=== PATIENT | male | born 1955 | race Caucasian/White ===

== ENCOUNTER → 2016-12-20 | Outpatient (CLI) | payer BC, OTHER ==
[~2016-12-20] MED LIST: AMR2 PO; ATV1 PO; CARB25TA16 PO; GLC500 PO; HMLI SC; INSDGI SC; LISI-461 PO; NEPRO TOP; RASA1TAB PO; SIMV20TA2 PO; SITA100T3 PO
--- NOTE | 2016-12-20 10:58 | DIAGNOSTIC IMAGING REPORT ---
LUMBAR SPINE 2 OR 3 VIEWS CLINICAL HISTORY: 61 years-old Male presenting with RIGHT LEG NUMBNESS. TECHNIQUE: Frontal and lateral views of the lumbar spine were obtained. COMPARISON: None. FINDINGS: Posterior transpedicular screw and wang fixation of L5-S1 noted with interbody spacer. No gross hardware complication. Vertebral body heights and alignment maintained. Intervertebral disc height also preserved. No radiographic evidence of acute fracture or subluxation. Osseous neural foraminal narrowing at L5-S1 may be present but is not well assessed. Paucity of bowel gas, nonspecific. No calcifications project over the kidneys. IMPRESSION: Posterior fusion of L5-S1. No radiographic evidence of acute fracture or subluxation. Electronically signed by: Gaurav Cruz M.D. 12/20/2016 10:56 AM Dictated Date/Time: 12/20/2016 10:55 AM
== END | disposition home or self-care (01) ==
LOC: C.RDSM 13:35
PROVIDERS: ATTEND Orthopaedic Surgery
DX: M54.5 Low back pain (principal); R20.0 Anesthesia of skin

== ENCOUNTER 2019-04-14 19:33 | Inpatient (IN) ==
[2019-04-14] MEDS ORDERED: SODIUM CHLORIDE 0.9% 1000ML 1,000 ML IV SCH (20:00)
--- NOTE | 2019-04-14 20:20 | XRay Report ---
XR chest 1V portable CLINICAL HISTORY: fall trauma COMPARISON STUDY: 04/13/2019 FINDINGS: The bones soft tissues and hemidiaphragms are normal. The cardiomediastinal silhouette is n ormal. The lungs are clear. The pulmonary vasculature is normal. Chronic and postoperative changes st able IMPRESSION: No acute process. The above report was generated using voice recognition software. It may contain grammatical, syntax or spelling errors. Electronically signed by: Gil Menjivar M.D. 04/14/2019 8:18 PM
[2019-04-14 20:38] LABS: Hematocrit (blood only) 41.6 % (42-52); Mean Corpuscular Hemoglobin 29.7 pg (25-34); Mean Corpuscular Hgb Conc 36.1 g/dL (32-36); Mean Corpuscular Volume 82.4 fL (80-100); RDW Coefficient of Variation 14.8 % (11.5-14.5); RDW Standard Deviation 44.6 fL (36.4-46.3); Red Blood Count 5.05 M/uL (4.7-6.1); White Blood Count 2.67 K/uL (4.8-10.8)
[2019-04-14 20:45] LABS: INR 1.1 (0.9-1.1); Prothrombin Time 10.9 Seconds (9.0-12.0)
--- NOTE | 2019-04-14 20:48 | CT Scan Report ---
CT head/brain wo con CT DOSE: HISTORY: Mental status change fall TECHNIQUE: Multiaxial CT images of the head were performed without the use of intravenous contrast. A dose lowering technique was utilized adhering to the principles of ALARA. Comparison: 04/13/2019 Findings: The paranasal sinuses and mastoid air cells are clear. Unchanged exam. Prior thalamic elect rode placement. This is considered unchanged. Findings of mild age-related atrophy and chronic small vessel change. This is also unaltered. No acut e intracranial hemorrhage. No midline shift. Impression: Chronic and postoperative change. No acute process. The above report was generated using voice recognition software. It may contain grammatical, syntax or spelling errors. Electronically signed by: Gil Menjivar M.D. 04/14/2019 8:47 PM
--- NOTE | 2019-04-14 20:50 | CT Scan Report ---
CT cervical spine wo con CT DOSE: 1148.41 mGy.cm HISTORY: Trauma. Pain. fall TECHNIQUE: Multiaxial CT images of the cervical spine were performed and reformatted in the sagittal and coronal plane without the use of contrast. A dose lowering technique was utilized adhering to th e principles of ALARA. COMPARISON: None. FINDINGS: No fractures. No subluxation. Prevertebral soft tissues and the C1-C2 interval are intact. No pneumothorax. Moderate generalized degenerative change throughout the entire cervical region. No e vidence for a compression deformity. IMPRESSION: Moderate degenerative change. No acute process. The above report was generated using voice recognition software. It may contain grammatical, syntax or spelling errors. Electronically signed by: Gil Menjivar M.D. 04/14/2019 8:49 PM
[2019-04-14 20:51] LABS: Alanine Aminotransferase 39 U/L (12-78); Albumin Level 3.6 gm/dl (3.4-5.0); Aspartate Aminotransferase 45 U/L (15-37); BUN Creatinine Ratio 13.3 (10-20); Blood Urea Nitrogen 13 mg/dl (7-18); Carbon Dioxide 21 mmol/L (21-32); Chloride 97 mmol/L (98-107); Est GFR (African American) 90.7; Est GFR (Non-African American) 78.2; Glucose 192 mg/dl (70-99); Potassium 3.2 mmol/L (3.5-5.1); Sodium 132 mmol/L (136-145)
[2019-04-14 20:55] LABS: Albumin Globulin Ratio 1.1 (0.9-2); Alkaline Phosphatase 81 U/L (45-117); Bilirubin,Total 1.1 mg/dl (0.2-1); Globulin 3.4 gm/dl (2.5-4.0); Troponin I < 0.015 ng/ml (0-0.045)
[2019-04-14 21:06] LABS: Basophils # (auto) 0.05 K/uL (0-0.2); Basophils % (auto) 1.9 %; Lymphocytes # (auto) 0.48 K/uL (1.2-3.4); Mean Platelet Volume 10.4 fL (7.4-10.4); Monocytes # (auto) 0.34 K/uL (0.11-0.59); Monocytes % (auto) 12.7 %; Neutrophils % (auto) 67.4 %; Platelet Count 68 K/uL (130-400); Platelet Estimate Decreased (Normal)
--- NOTE | 2019-04-14 22:01 | History & Physical Report ---
Date of Service April 14, 2019 Assessment & Plan (1) Recurrent falls: Butch Pina is a 63-year-old male with a past medical history of type 2 diabetes mellitus and Parkinson's disease who presents with ambulatory dysfunction, fall, and fever. Ambulatory dysfunction/weakness with fever and leukopenia suspicious for anaplasmosis Gradually worsening ambulatory dysfunction over several months, but acutely worsened in the last week Patient's family had pulled several engorged deer ticks off of him in the last 2 weeks Neutropenic to 2.67, elevated AST to 45, febrile to 37.7 on admit. Anaplasmosis smear and PCR ordered Empiric anaplasmosis treatment doxycycline 100 mg IV twice daily x10-day course Suspect he has a substantial amount of deconditioning independent of acute illness, will likely need NISHANT. PT/OT ordered CBC, CMP daily Type 2 diabetes mellitus, poorly controlled Per patient's family he rarely takes his medications due to his confusion in the last week, and overall difficulty managing medications Hold EVENTS ASSISTANT oral anti-glycemic's Continue insulin glargine 54 units subcu twice daily Continue insulin aspart SSI Given patient's unknown insulin requirements, and unclear protocol adherence will place pharmacy consult for close monitoring of short acting insulin and titration Hemoglobin A1c ordered Parkinson's Patient has a deep brain stimulator which is effective in helping control his tremors Continue EVENTS ASSISTANT Sinemet 2 tabs p.o. 4 times daily Continue EVENTS ASSISTANT Azilect 1 mg p.o. every morning Back pain/spasm status post spinal fusion Continue meloxicam 15 mg p.o. daily Continue oxycodone 5 mg p.o. every 4 hours as needed Hypertension Continue loratadine 10 mg p.o. nightly Continue irbesartan 300 mg p.o. nightly Continue aspirin 81 mg nightly Dysphagia, concern for aspiration risk Patient has had repeated liquid aspiration events per family with difficulty swallowing medications N.p.o. with sips and meds pending PROP CUTTER eval Hypokalemia K riders x4 IV FM as below Magnesium normal at last check DVT prophylaxis: SCDs. Pharmacologic prophylaxis held in the setting of thrombocytopenia FEN/GI N.p.o. as above NSS +20 M EQ KCl at 80 cc/h maintenance CODE STATUS: Full code, discussed with patient (2) Leukopenia: (3) Thrombocytopenia: (4) Weakness: (5) Parkinson's disease: (6) Acute viral syndrome: (7) Dehydration: (8) Hyperglycemia: (9) Parkinson disease: (10) DM type 2 (diabetes mellitus, type 2): History of Present Illness Chief Complaint: Fall, Fever Primary Care Provider: Cedrick Marquez MD Butch is a 63-year-old male with a past medical history of Parkinson's and type 2 diabetes mellitus who presents with chronic ambulatory dysfunction over several months, with a sudden acute worsening in the last week. Butch reports that for the last week he is felt globally weak. He has had some intermittent numbness and tingling in his left arm. He denies chest pain, chest pressure, shortness of breath, difficulty breathing, new cough, lightheadedness, or dizziness, but endorses that he just feels globally weak. His family who is present at bedside report that they feel like he is a little cognitively slowed and more confused than normal. He has also had urinary incontinence last 3 to 4 days which is unusual for him. He has not noticed an increase in his parki nsonian tremor. Denies fever at home, but has felt warm. Denies chills, night sweats. Denies rash, joint swelling, arthralgia. His reports that he danielle deer heads and she recently pulled multiple embedded deer ticks off of him. He had Lyme testing at a ED visit yesterday for a fall, IgM/IgG were negative. His reports that he is only been about 30% compliant with his medications overall due to weakness and difficulty swallowing medications. He has chronic back pain controlled and had spinal fusion in October, reports that he is felt weak and has had difficulty ambulating since then. Has not been to rehab. He fell this afternoon, and was reportedly down for about 2 hours before his found him. A chair fell on top of him and hit his head. He did not lose consciousness. Endorses allergies. Denies cold-like symptoms. Endorses chronic leg cough, unchanged from baseline. Denies sputum production. Denies sore throat. Denies sinus congestion. Denies shortness of breath, difficulty breathing, pain on inspiration. Denies chest pain, chest pressure, palpitations. Endorses a fall, but denies loss of consciousness. Denies flank pain. Denies nausea, vomiting, diarrhea, constipation, abdominal pain. Endorses midline umbilical hernia without tenderness. Denies numbness in distal extremities. Endorses intermittent left arm tingling and paresthesia in the last week. Denies focal neurologic deficit. Endorses parkinsonian tremor. His neurologist is Dr. Knox and Prudence PCP is Dr. Scott Gaitan Allergies Allergy/AdvReac Type Severity Reaction Status Date / Time lisinopril Allergy Mild Cough Verified 04/14/19 21:16 Njcrsfu-Vam-Gmy Reductase Allergy Mild MUSCLE Verified 04/14/19 21:16 Inhibitor CRAMPS Home Medications Home Medications Medication Instructions Recorded Confirmed Type carbidopa-levodopa 2 tab PO QID 04/13/19 04/14/19 History dapagliflozin [Farxiga] 10 mg PO QAM 04/13/19 04/14/19 History evolocumab [Repatha SureClick] 140 mg SUBCUT Q14D 04/13/19 04/14/19 History finasteride 5 mg PO HS 04/13/19 04/14/19 History insulin glargine [Lantus Solostar 54 unit SUBCUT BID 04/13/19 04/14/19 History U-100 Insulin] loratadine 10 mg PO HS 04/13/19 04/14/19 History metformin 1,000 mg PO DIRECTED 04/13/19 04/14/19 History aspirin 81 mg PO HS 04/14/19 04/14/19 History cholecalciferol (vitamin D3) 400 unit PO QAM 04/14/19 04/14/19 History [Vitamin D3] cyanocobalamin (vitamin B-12) 100 mcg PO QAM 04/14/19 04/14/19 History [Vitamin B-12] fluticasone propionate [Flonase 2 spray INTRANASAL DAILY PRN 04/14/19 04/14/19 History Allergy Relief] insulin aspart U-100 [Novolog See Rx Instructions .ROUTE .COMPLEX 04/14/19 04/14/19 History Flexpen U-100 Insulin] irbesartan 300 mg PO HS 04/14/19 04/14/19 History lutein 10 mg PO HS 04/14/19 04/14/19 History meloxicam 15 mg PO DAILY PRN 04/14/19 04/14/19 History oxycodone 5 mg PO Q4H PRN 04/14/19 04/14/19 History rasagiline [Azilect] 1 mg PO QAM 04/14/19 04/14/19 History Past Med/Surg History Surgical History No pertinent past surgical history Social History Preferred Language: Pashto Communication Ability: Effective Inspector Aide Required: No Beliefs That Will Affect Care: None Current Living Situation: Spouse Feels Safe at Home: Yes Smoking Status: Never smoker Hx Alcohol Use: No Hx Substance Use: No Review of Systems Review of Systems: All systems reviewed & are unremarkable except as noted in HPI & below Physical Exam Physical Exam: General: Oriented to name, year, and place. No acute distress. Cooperative. Speech slow, fluent. Skin: No rash, no erythema migrans appreciated. No petechiae/hematomas appreciated. HEENT: Atraumatic, normocephalic. No facial asymmetry. No nasolabial fold flattening or hypertonicity. Pupils equal and reactive to light and accommodation. No nystagmus. Facial sensation intact, facial strength intact without deficit. External ear anatomy normal. External nasal anatomy normal. Mucous membranes tacky, posterior pharynx without erythema/exudate. Uvula midline. Pulm: CTAB A&P. -wheezes, -rales, -rhonchi. Symmetrical chest rise. No increase work of breathing. No respiratory distress. Cardiac: RRR, -mrg. Intermittent PVC every 10-20 beats. Radial pulses intact and symmetrical. PT pulse intact and symmetrical. Abdominal: Nontender, nondistended, soft. Reducible umbilical hernia present. BS present. Extremities: Cogwheeling tremor appreciated in arms bilaterally, more exaggerated on the left compared to right. Finger flexion/extension, airborne missions systems strength, elbow flexion/extension, hip flexion, knee flexion/extension, ankle plantarflexion/dorsiflexion with 4+/5 strength. Results & Data Vital Signs (Past 12 Hours) Vital Signs Temp Pulse Pulse Resp BP BP Pulse Ox 04/14/19 21:30 95 H 20 04/14/19 21:15 94 H 14 04/14/19 21:00 90 27 H 04/14/19 20:52 95 H 22 04/14/19 20:30 90 22 140/72 04/14/19 20:01 37.7 C H 102 H 14 145/84 H 93 04/14/19 19:58 102 H 93 11/20/19 19:39 37.6 C H 113 H 18 147/81 H 94 Supervising Physician Co-Signing Physician Notes Patient seen and examined, chart reviewed, case discussed with Dr. Phelps and I agree with his assessment and plan as documented above. Briefly, patient is a 63-year-old male with history of diabetes, Parkinson's disease. Family reports a progressive decline and deconditioning since October however over the last week patient has had rapid decline, diffuse weakness, poor balance with multiple falls. Patient with recent tick exposure. No rash reported On physical exam he is afebrile, hemodynamically stable, no acute distress Elderly appearing gentleman resting comfortably in bed Skin is warm dry and intact Head is normocephalic atraumatic, pupils equal round reactive to light, extraocular muscles intact, neck supple, moist mucous membranes + S1/S2, regular with occasional ectopy, no murmurs rubs or gallops Lungs CTA no rales rhonchi or wheezes Abdomen bowel sounds present, soft, nontender, nondistended Extremitieswarm, well-perfused Neurologicalpatient with cogwheel rigidity and resting tremor, diffuse weakness 4-5 Labs and images reviewed. She is leukopenic and thrombocytopenic. Hyponatremic with sodium = 132, potassium = 3.2, chloride = 97, high urine specific gravity with 4+ ketones Assessment/plan 63-year-old male with history of diabetes, hypertension, Parkinson's disease presenting with 1 week of increasing weakness and imbalance with multiple falls. -Concern for tickborne illness given recent exposure and laboratory abnormalities of leukopenia/thrombocytopenia. Lyme was sent at other facility, will sign anaplasmosis/babesiosis/Ehrlichia tests. Initiate empiric doxycycline 100 mg twice daily -Repeat chemistry in a.m. If patient with persistent anion gap would consider sending ABG and lactate to further assess acid-base status. Patient had a markedly elevated blood sugar at 443 yesterday, also 3+ glucose in urine and ketones. -Remainder of plan as above Resident Activity Tracking Resident Involvement: Resident Care Provided Care Provided: Adult Hospital Medicine (1) Leukopenia Leukopenia type: other Qualified Code(s): D72.818 - Other decreased white blood cell count
[2019-04-14 22:56] LABS: Appearance Urine Clear (Clear); Bacteria Urine Automated Negative (Negative); Bilirubin Urine Negative (Negative); Blood Urine Trace (Negative); Cast Urine Automated 0 /lpf (0-5); Color Urine Yellow; Glucose Urine UA 3+ (Negative); Leukocyte Esterase Urine Negative (Negative); Nitrite Urine Negative (Negative); Protein Urine Trace (Negative); RBC Urine Automated 0-4 /hpf (0-4); Urobilinogen Urine Negative (Negative)
[2019-04-14 23:02] LABS: Ketones Urine 4+ (Negative)
[2019-04-14] MEDS ORDERED: SODIUM CHLORIDE 0.9% 1000ML 1,000 ML IV ONE (23:13)
[2019-04-14] MEDS ORDERED: CARBOHYDRATES FOR HYPOGLYCEMIA PO PRN (23:31)
[2019-04-14] MEDS ORDERED: DEXTROSE 50% 50 ML SYRINGE IV PRN (23:31)
[2019-04-14] MEDS ORDERED: ACETAMINOPHEN 325 MG TAB PO PRN (23:31)
[2019-04-14] MEDS ORDERED: GLUCOSE 40% GEL 15 GM TUBE PO PRN (23:31)
[2019-04-14] MEDS ORDERED: MELOXICAM 7.5 MG TAB PO PRN (23:31)
[2019-04-14] MEDS ORDERED: GLUCOSE 10 TABS/TUBE PO PRN (23:31)
[2019-04-14] MEDS ORDERED: GLUCAGON FOR INJ 1 MG VIAL SQ PRN (23:31)
--- NOTE | 2019-04-14 23:44 | Emergency Department Note ---
Entered by Gabrielle Chauhan acting as a scribe for Tomas Vicente DO History of Present Illness General Chief complaint: Fall Stated complaint: FELL, CHAIR HIT HEAD, ARMS SCRAPPED Source: patient and family () History of Present Illness Onset (ago): hour(s) 5 Location: head Maximum Pain Intensity: 6 Current Pain Intensity: 6 Relieved By: + none Exacerbated By: + none Associated symptoms: + confusion and + headaches Treatments prior to arrival: none The patient is a 63 year old male who presents to the Emergency Room with complaints of fall that occurred about 5 hours ago. The patient was in the hospital yesterday for DKA. He reports that he fell around 14:00 today. He notes that he fell backwards and hit his head on a chair. He remembers the whole event, and did not lose consciousness. He complains of head pain and elbow pain. He does not take any blood thinners. His reports that he has Parkinsons, diabetes, and that he falls often. She notes that his falls have worsened over the past week, with about 5 incidents. She notes that he had back surgery in October, which he recovered from. His states that he has not been doing well at home over the past week. Home Medications Home Medications Medication Instructions Recorded Confirmed Type carbidopa-levodopa 2 tab PO QID 04/13/19 04/14/19 History dapagliflozin [Farxiga] 10 mg PO QAM 04/13/19 04/14/19 History evolocumab [Repatha SureClick] 140 mg SUBCUT Q14D 04/13/19 04/14/19 History finasteride 5 mg PO HS 04/13/19 04/14/19 History insulin glargine [Lantus Solostar 54 unit SUBCUT BID 04/13/19 04/14/19 History U-100 Insulin] loratadine 10 mg PO HS 04/13/19 04/14/19 History metformin 1,000 mg PO DIRECTED 04/13/19 04/14/19 History aspirin 81 mg PO HS 04/14/19 04/14/19 History cholecalciferol (vitamin D3) 400 unit PO QAM 04/14/19 04/14/19 History [Vitamin D3] cyanocobalamin (vitamin B-12) 100 mcg PO QAM 04/14/19 04/14/19 History [Vitamin B-12] fluticasone propionate [Flonase 2 spray INTRANASAL DAILY PRN 04/14/19 04/14/19 History Allergy Relief] insulin aspart U-100 [Novolog See Rx Instructions .ROUTE .COMPLEX 04/14/19 04/14/19 History Flexpen U-100 Insulin] irbesartan 300 mg PO HS 04/14/19 04/14/19 History lutein 10 mg PO HS 04/14/19 04/14/19 History meloxicam 15 mg PO DAILY PRN 04/14/19 04/14/19 History oxycodone 5 mg PO Q4H PRN 04/14/19 04/14/19 History rasagiline [Azilect] 1 mg PO QAM 04/14/19 04/14/19 History Allergies Allergy/AdvReac Type Severity Reaction Status Date / Time lisinopril Allergy Mild Cough Verified 04/14/19 21:16 [id number]-[id number]-[id number] Reductase Allergy Mild MUSCLE Verified 04/14/19 21:16 Inhibitor CRAMPS Past Med/Surg History Surgical History No pertinent past surgical history Social History Preferred Language: Kuwaiti Communication Ability: Effective Leasing Manager Required: No Beliefs That Will Affect Care: None Current Living Situation: Spouse Feels Safe at Home: Yes Smoking Status: Never smoker Hx Alcohol Use: No Hx Substance Use: No Review of Systems See HPI for pertinent positives & negatives. and A total of 10 systems reviewed and were otherwise negative Physical Exam Vital Signs Vital Signs - 24 hr 04/14/19 19:39 04/14/19 19:58 04/14/19 20:01 Temperature 37.6 C H 37.7 C H Temperature Source Oral Oral Pulse Rate 113 H 102 H Pulse Rate [Left Apical] 102 H Pulse Rate from SpO2 Sensor Pulse Rhythm Regular Pulse Rhythm [Left Apical] Regular Pulse Strength [Left Apical] Normal Respiratory Rate 18 14 Respiratory Effort / Characteristics Non-Labored Spontaneous Respiratory Depth Normal Respiratory Pattern Regular Blood Pressure 147/81 H Blood Pressure [Right Arm] 145/84 H Blood Pressure Mean 103 Blood Pressure Mean [Right Arm] 104 Blood Pressure Position [Right Arm] Lying Pulse Oximetry 94 93 93 Oxygen Delivery Method Room Air Room Air Room Air Sepsis Recent Fever Within 48 Hours No Sepsis New/Unexplained Change in Mental Status No Sepsis Action Taken by Nursing No Action Required 04/14/19 20:30 04/14/19 20:52 04/14/19 21:00 Temperature Temperature Source Pulse Rate 90 95 H 90 Pulse Rate [Left Apical] Pulse Rate from SpO2 Sensor Pulse Rhythm Pulse Rhythm [Left Apical] Pulse Strength [Left Apical] Respiratory Rate 22 22 27 H Respiratory Effort / Characteristics Respiratory Depth Respiratory Pattern Blood Pressure 140/72 Blood Pressure [Right Arm] Blood Pressure Mean 98 Blood Pressure Mean [Right Arm] Blood Pressure Position [Right Arm] Pulse Oximetry Oxygen Delivery Method Sepsis Recent Fever Within 48 Hours Sepsis New/Unexplained Change in Mental Status Sepsis Action Taken by Nursing 04/14/19 21:15 04/14/19 21:30 04/14/19 21:45 Temperature Temperature Source Pulse Rate 94 H 95 H 96 H Pulse Rate [Left Apical] Pulse Rate from SpO2 Sensor Pulse Rhythm Pulse Rhythm [Left Apical] Pulse Strength [Left Apical] Respiratory Rate 14 20 28 H Respiratory Effort / Characteristics Respiratory Depth Respiratory Pattern Blood Pressure Blood Pressure [Right Arm] Blood Pressure Mean Blood Pressure Mean [Right Arm] Blood Pressure Position [Right Arm] Pulse Oximetry Oxygen Delivery Method Sepsis Recent Fever Within 48 Hours Sepsis New/Unexplained Change in Mental Status Sepsis Action Taken by Nursing 04/14/19 22:00 04/14/19 22:15 04/14/19 22:21 Temperature Temperature Source Pulse Rate 96 H 100 H 97 H Pulse Rate [Left Apical] Pulse Rate from SpO2 Sensor 97 H Pulse Rhythm Pulse Rhythm [Left Apical] Pulse Strength [Left Apical] Respiratory Rate 30 H 31 H 30 H Respiratory Effort / Characteristics Respiratory Depth Respiratory Pattern Blood Pressure 139/69 Blood Pressure [Right Arm] Blood Pressure Mean 88 Blood Pressure Mean [Right Arm] Blood Pressure Position [Right Arm] Pulse Oximetry 96 Oxygen Delivery Method Sepsis Recent Fever Within 48 Hours Sepsis New/Unexplained Change in Mental Status Sepsis Action Taken by Nursing 04/14/19 22:30 04/14/19 22:31 04/14/19 22:45 Temperature Temperature Source Pulse Rate 93 H 96 H 92 H Pulse Rate [Left Apical] Pulse Rate from SpO2 Sensor 89 94 H 93 H Pulse Rhythm Pulse Rhythm [Left Apical] Pulse Strength [Left Apical] Respiratory Rate 23 16 23 Respiratory Effort / Characteristics Respiratory Depth Respiratory Pattern Blood Pressure 135/69 183/86 H Blood Pressure [Right Arm] Blood Pressure Mean 89 118 Blood Pressure Mean [Right Arm] Blood Pressure Position [Right Arm] Pulse Oximetry 95 96 92 Oxygen Delivery Method Sepsis Recent Fever Within 48 Hours Sepsis New/Unexplained Change in Mental Status Sepsis Action Taken by Nursing GENERAL: alert, well appearing, well nourished, no distress, non-toxic HEAD: mild tenderness in posterior occiput. normal cephalic EYE EXAM: normal conjunctiva, PERRL and EOM's grossly intact OROPHARYNX: no exudate, no erythema, lips, buccal mucosa, and tongue normal and mucous membranes are moist EARS: TMs clear b/l NECK: supple, no nuchal rigidity, no adenopathy, non-tender CHEST: stable to compression anteriorly and posteriorly LUNGS: clear to auscultation. Normal chest wall mechanics HEART: no murmurs, S1 normal and S2 normal ABDOMEN: abdomen soft, non-tender, normo-active bowel sounds, no masses, no rebound or guarding. PELVIS: stable to compression anteriorly and posteriorly BACK: Bruise over right scapula. Back is symmetrical on inspection and there is no deformity, no midline tenderness, no CVA tenderness. UPPER EXTREMITIES: full active and passive range of motion of all joints without tenderness to palpation LOWER EXTREMITIES: Rigidity in left lower extremity. Tenderness to palpation. NEURO EXAM: Normal sensorium, cranial nerves II-XII intact, normal speech, no weakness of arms, no weakness of legs. No drift. Finger to nose intact. Gross sensation intact. GCS: 15. Course Course 1951: Past medical records reviewed. The patient was evaluated in room B12B. A complete history and physical exam was performed. 2126: I spoke to Nathalia Brooks, [facility] Hospitalist, regarding the patient. She agreed to take over care and further evaluate the patient. The patient verbally expressed understanding and agreement of the treatment plan. The patient will be evaluated for further treatment. Administered Medications Discontinued Medications Sodium Chloride (Nss 1000ml) 1,000 mls @ 999 mls/hr IV .Q1H1M ZOHRA Stop: 04/14/19 21:00 Last Infusion: 04/14/19 21:33 Dose: 0 mls/hr Documented by: [id number] Admin: 04/14/19 20:32 Dose: 999 mls/hr Documented by: [id number] Medical Decision Making Differential Diagnosis Differential diagnosis includes: fracture, dislocation, intra-abdominal, pneumothorax, intrathoracic , intracranial, neurologic, as well as other traumatic pathologies were entertained. Medical Records Attestation: I reviewed the patient's medical records. Home Medications Current Medication List: was personally reviewed by me Laboratory Data Attestation: I reviewed the patient's lab results. Result diagrams: 04/14/19 20:24 04/14/19 20:24 Lab Results 04/14/19 04/14/19 04/14/19 Range/Units 19:48 20:24 20:24 WBC 2.67 L (4.8-10.8) K/uL RBC 5.05 (4.7-6.1) M/uL Hgb 15.0 (14.0-18.0) g/dL Hct 41.6 L (42-52) % MCV 82.4 (80-100) fL MCH 29.7 (25-34) pg MCHC 36.1 H (32-36) g/dL RDW Std Deviation 44.6 (36.4-46.3) fL RDW Coeff of Genevieve 14.8 H (11.5-14.5) % Plt Count 68 L (130-400) K/uL MPV 10.4 (7.4-10.4) fL Immature Gran % (Auto) 0.0 % Neut % (Auto) 67.4 % Lymph % (Auto) 18.0 % Kinney % (Auto) 12.7 % Eos % (Auto) 0.0 % Baso % (Auto) 1.9 % Immature Gran # (Auto) 0.00 (0.00-0.02) K/uL Neut # (Auto) 1.80 (1.4-6.5) K/uL Lymph # (Auto) 0.48 L (1.2-3.4) K/uL Kinney # (Auto) 0.34 (0.11-0.59) K/uL Eos # (Auto) 0.00 (0-0.5) K/uL Baso # (Auto) 0.05 (0-0.2) K/uL Platelet Estimate Decreased L (Normal) PT (9.0-12.0) Seconds INR (0.9-1.1) Sodium 132 L (136-145) mmol/L Potassium 3.2 L (3.5-5.1) mmol/L Chloride 97 L (98-107) mmol/L Carbon Dioxide 21 (21-32) mmol/L Anion Gap 14.0 H (3-11) BUN 13 (7-18) mg/dl Creatinine 1.01 (0.6-1.4) mg/dl Est Cr Clr Drug Dosing Not Reportable Est GFR ( Amer) 90.7 Est GFR (Non-Af Amer) 78.2 BUN/Creatinine Ratio 13.3 (10-20) Glucose 192 H (70-99) mg/dl POC Glucose 185 H (70-99) Calcium 9.0 (8.5-10.1) mg/dl Total Bilirubin 1.1 H (0.2-1) mg/dl AST 45 H (15-37) U/L ALT 39 (12-78) U/L Alkaline Phosphatase 81 (45-117) U/L Troponin I < 0.015 (0-0.045) ng/ml Total Protein 7.0 (6.4-8.2) gm/dl Albumin 3.6 (3.4-5.0) gm/dl Globulin 3.4 (2.5-4.0) gm/dl Albumin/Globulin Ratio 1.1 (0.9-2) Urine Color Urine Appearance (Clear) Urine pH (4.5-7.5) Ur Specific Ellsworth (1.000-1.030) Urine Protein (Negative) Urine Glucose (UA) (Negative) Urine Ketones (Negative) Urine Blood (Negative) Urine Nitrite (Negative) Urine Bilirubin (Negative) Urine Urobilinogen (Negative) Ur Leukocyte Esterase (Negative) Urine WBC (Auto) (0-5) /hpf Urine RBC (Auto) (0-4) /hpf U Hyaline Cast (Auto) (0-5) /lpf U Epithel Cells (Auto) (0-5) /lpf Urine Bacteria (Auto) (Negative) 04/14/19 04/14/19 Range/Units 20:24 22:15 WBC (4.8-10.8) K/uL RBC (4.7-6.1) M/uL Hgb (14.0-18.0) g/dL Hct (42-52) % MCV (80-100) fL MCH (25-34) pg MCHC (32-36) g/dL RDW Std Deviation (36.4-46.3) fL RDW Coeff of Genevieve (11.5-14.5) % Plt Count (130-400) K/uL MPV (7.4-10.4) fL Immature Gran % (Auto) % Neut % (Auto) % Lymph % (Auto) % Kinney % (Auto) % Eos % (Auto) % Baso % (Auto) % Immature Gran # (Auto) (0.00-0.02) K/uL Neut # (Auto) (1.4-6.5) K/uL Lymph # (Auto) (1.2-3.4) K/uL Kinney # (Auto) (0.11-0.59) K/uL Eos # (Auto) (0-0.5) K/uL Baso # (Auto) (0-0.2) K/uL Platelet Estimate (Normal) PT 10.9 (9.0-12.0) Seconds INR 1.1 (0.9-1.1) Sodium (136-145) mmol/L Potassium (3.5-5.1) mmol/L Chloride (98-107) mmol/L Carbon Dioxide (21-32) mmol/L Anion Gap (3-11) BUN (7-18) mg/dl Creatinine (0.6-1.4) mg/dl Est Cr Clr Drug Dosing Est GFR ( Amer) Est GFR (Non-Af Amer) BUN/Creatinine Ratio (10-20) Glucose (70-99) mg/dl POC Glucose (70-99) Calcium (8.5-10.1) mg/dl Total Bilirubin (0.2-1) mg/dl AST (15-37) U/L ALT (12-78) U/L Alkaline Phosphatase (45-117) U/L Troponin I (0-0.045) ng/ml Total Protein (6.4-8.2) gm/dl Albumin (3.4-5.0) gm/dl Globulin (2.5-4.0) gm/dl Albumin/Globulin Ratio (0.9-2) Urine Color Yellow Urine Appearance Clear (Clear) Urine pH 5.0 (4.5-7.5) Ur Specific Ellsworth 1.040 H (1.000-1.030) Urine Protein Trace H (Negative) Urine Glucose (UA) 3+ H (Negative) Urine Ketones 4+ H (Negative) Urine Blood Trace H (Negative) Urine Nitrite Negative (Negative) Urine Bilirubin Negative (Negative) Urine Urobilinogen Negative (Negative) Ur Leukocyte Esterase Negative (Negative) Urine WBC (Auto) 1-5 (0-5) /hpf Urine RBC (Auto) 0-4 (0-4) /hpf U Hyaline Cast (Auto) 0 (0-5) /lpf U Epithel Cells (Auto) 5-10 H (0-5) /lpf Urine Bacteria (Auto) Negative (Negative) Imaging Data Radiologist's Impression: Radiology results as stated below per my review and th e radiologist's interpretation: CT cervical spine wo con CT DOSE: 1148.41 mGy.cm HISTORY: Trauma. Pain. fall TECHNIQUE: Multiaxial CT images of the cervical spine were performed and reformatted in the sagittal and coronal plane without the use of contrast. A dose lowering technique was utilized adhering to the principles of ALARA. COMPARISON: None. FINDINGS: No fractures. No subluxation. Prevertebral soft tissues and the C1-C2 interval are intact. No pneumothorax. Moderate generalized degenerative change throughout the entire cervical region. No evidence for a compression deformity. IMPRESSION: Moderate degenerative change. No acute process. The above report was generated using voice recognition software. It may contain grammatical, syntax or spelling errors. Electronically signed by: Gil Menjivar M.D. 04/14/2019 8:49 PM XR chest 1V portable CLINICAL HISTORY: fall trauma COMPARISON STUDY: 04/13/2019 FINDINGS: The bones soft tissues and hemidiaphragms are normal. The cardiomediastinal silhouette is normal. The lungs are clear. The pulmonary vasculature is normal. Chronic and postoperative changes stable IMPRESSION: No acute process. The above report was generated using voice recognition software. It may contain grammatical, syntax or spelling errors. Electronically signed by: Gil Menjivar M.D. 04/14/2019 8:[address] head/brain wo con CT DOSE: HISTORY: Mental status change fall TECHNIQUE: Multiaxial CT images of the head were performed without the use of intravenous contrast. A dose lowering technique was utilized adhering to the principles of ALARA. Comparison: 04/13/2019 Findings: The paranasal sinuses and mastoid air cells are clear. Unchanged exam. Prior thalamic electrode placement. This is considered unchanged. Findings of mild age-related atrophy and chronic small vessel change. This is also unaltered. No acute intracranial hemorrhage. No midline shift. Impression: Chronic and postoperative change. No acute process. The above report was generated using voice recognition software. It may contain grammatical, syntax or spelling errors. Electronically signed by: Gil Menjivar M.D. 04/14/2019 8:47 PM ECG Data Attestation: I personally reviewed and interpreted this ECG as follows: Indication: + other (fall) Rate (beats per minute): 103 Rhythm: + sinus tachycardia ECG Intervals/blocks: + Normal QT ECG Fulda: + Left axis deviation ECG Findings: + Q waves (Septal); no PVCs Blood Pressure Blood Pressure Findings: Elevated blood pressure Blood Pressure Disposition: further management by hospitalist SARY Narrative Patient is a 63-year-old male who presents the ER for a fall which happened earlier today. He was unable to get off the floor. He has fallen 5 times in the past week. Twice in the past 24 hours. He is been unable to get himself up the past 3 falls. He notes he is feeling weaker. IV was established and shows a mild leukopenia 2.6 thousand. No significant anemia. INR unremarkable. BMP shows a mild hyponatremia and hypokalemia. LFTs bilirubin and troponin was negative. UA was unremarkable. CT head and cervical spine was unremarkable. Chest x-ray unremarkable. With the recurrent falls and family unable to take care of him at home patient was brought in for observation. Discussed with the hospitalist. Do favor that this is secondary to his Parkinson's. Impression & Plan Recurrent falls, Leukopenia, Thrombocytopenia, Weakness Discharge Plan Visit Data *Final* Discharge Date/Time: 04/14/19 22:55 Chief Complaint: Fall Stated Complaint: FELL, CHAIR HIT HEAD, ARMS SCRAPPED ED Provider: Tomas Vicente Discharge Problem: Recurrent falls, Leukopenia, Thrombocytopenia, Weakness Patient Disposition: Admitted As Inpatient Discharge Instructions Interventions: ED Discharge Assessment Last Done: 04/14/19 22:55 Discharge Problem: Leukopenia Qualifiers: Leukopenia type: other Qualified Code(s): D72.818 - Other decreased white blood cell count The scribe's documentation has been prepared under my direction and personally reviewed by me in its entirety. I confirm that the note above accurately reflects all work, treatment, procedures, and medical decision making performed by me.
[2019-04-14] MEDS ORDERED: OXYCODONE HCL IR 5 MG TAB (IMMEDIATE RELEASE) PO PRN (23:46)
[2019-04-14] MEDS ORDERED: PHARMACY GLYCEMIC MGMT CONSULT PRN (23:50)
[2019-04-15] MEDS ORDERED: INSULIN GLARGINE SOLOSTAR 100 UNITS/ML 3 ML PEN SQ ONE
--- NOTE | 2019-04-15 00:31 | Billing Data ---
Coding Level of Care Code 59890 Initial Inpt Care Lvl 3
[2019-04-15] MEDS: DOXYCYCLINE HYCLATE 100 MG in DEXTROSE 5% 100 ML IV SCH ×2 (00:42→12:54)
[2019-04-15] MEDS: INSULIN ASPART 100 UNITS/ML 3 ML PEN SC SCH ×6 (00:48→21:44)
[2019-04-15] MEDS: NSS + 20MEQ KCL 20 MEQ/1,000 ML BAG IV SCH ×2 (00:51→12:54)
[2019-04-15] MEDS: AZILECT~ORDER AWAITING ACTION SCH ×3 (02:11→13:07)
[2019-04-15] MEDS: POTASSIUM CHLORIDE / WTR 10 MEQ/100 ML PLCT IV SCH ×4 (02:11→05:49)
[2019-04-15 06:57] LABS: Hemoglobin 13.2 g/dL (14.0-18.0); Mean Corpuscular Hemoglobin 29.8 pg (25-34); Mean Corpuscular Hgb Conc 35.7 g/dL (32-36); Mean Corpuscular Volume 83.5 fL (80-100); RDW Standard Deviation 46.1 fL (36.4-46.3); Red Blood Count 4.43 M/uL (4.7-6.1)
[2019-04-15 07:15] LABS: Mean Platelet Volume 10.3 fL (7.4-10.4); Platelet Count 57 K/uL (130-400)
[2019-04-15 07:28] LABS: BUN Creatinine Ratio 17.3 (10-20); Calcium 8.2 mg/dl (8.5-10.1); Creatinine Clr Calc Pharmacy 115.4 ml/min; Est GFR (African American) 113.6; Potassium 3.4 mmol/L (3.5-5.1)
[2019-04-15 07:38] LABS: ALC (manual) 1.02 K/uL (1.2-3.4); ANC (manual) 1.33 K/uL (1.4-6.5); Basophils # (manual) 0.02 K/uL (0-0.2); Basophils % (manual) 0.9 %; Lymphocytes # (manual) 1.02 K/uL (1.2-3.4); Lymphocytes % (manual) 40.9 %; Monocytes # (manual) 0.13 K/uL (0.11-0.59); Monocytes % (manual) 5.2 %; Neutrophils # (manual) 1.33 K/uL (1.4-6.5); RBC Morphology Unremarkable
[2019-04-15] MEDS: CARBIDOPA/LEVODOPA 25/100MG TAB PO SCH ×4 (08:16→22:07)
[2019-04-15] MEDS: CHOLECALCIFEROL (VITAMIN D) 400 UNITS TABLET PO SCH (08:17)
[2019-04-15] MEDS: CYANOCOBALAMIN (VITAMIN B-12) 100 MCG TABLET PO SCH (08:17)
[2019-04-15 08:20] LABS: Estimated Average Glucose 335 mg/dl; Hemoglobin A1C 13.3 % (4.5-5.6)
[2019-04-15] MEDS ORDERED: INSULIN GLARGINE SOLOSTAR 100 UNITS/ML 3 ML PEN SQ SCH ×2 (09:00→10:00)
--- NOTE | 2019-04-15 09:06 | Pharmacy Report ---
Pharmacy Glycemic Short Note 2 - Date of Service April 15, 2019 - Glycemic Short BSG Results (Last 24 hours): 04/14/19 04/14/19 04/15/19 19:48 20:24 00:47 Glucose 192 H POC Glucose 185 H 125 H 04/15/19 04/15/19 05:52 06:44 Glucose 89 POC Glucose 125 H OUTPATIENT ANTIDIABETIC REGIMEN: * Lantus 54 units SQ BID + Novolog TID with meals (22 units/12 units/26 units) * Farxiga 10 mg qAM + metformin (currently being held) * non-compliant with outpatient regimen * A1c = 13.3% (04/15/19) ASSESSMENT: * Mr. Pina is a 63 yr old male with h/o Parkinsons disease admitted for recurrent falls, fever, and suspicion for anaplasmosis infection. * Poorly controlled T2DM. Patient's family reports non-compliance with anti- diabetic regimen due to confusion and difficulty managing medications. * Fasting BSG of 125 mg/dL is at goal. Butch received a reduced dose of basal insulin yesterday; total of 84 units of Lantus (of note PM dose given late, ~0100). I further reduced this dose by ~25% for NPO status this morning. Patient was ordered a diet with lunch, therefore PM dose will be titrated upward. * Will utilize weight based Novolog CF/CR (stress of 2-3) rather than home doses due to non compliance. PLAN FOR INPATIENT GLYCEMIC CONTROL: * Hold outpatient oral diabetes medications * Basal insulin * Lantus 30 units SQ this morning, then per scale BID: * 20 units for BSG < 120 * 30 units for BSG 120-180 * 40 units for BSG > 180 * Bolus insulin * NovoLog per scale ACHS or Q6hrs while NPO * Goal Range: Low 120 mg/dL - High 150 mg/dL * Correction Factor: 15 mg/dL/unit * Nutritional / Prandial insulin per carb ratio of 1 unit per 5 grams CHO consumed PLAN FOR DISCHARGE: * A1c = 13.3% * Goal A1c <8% based on comorbidities
[2019-04-15] MEDS ORDERED: Nursing to Pharmacy Communication ONE (12:08)
[2019-04-15] MEDS ORDERED: NON-FORMULARY MEDICATION (Lutein 10 MG) PO SCH (21:00)
--- NOTE | 2019-04-15 21:32 | Hospitalist Progress Note ---
Date of Service April 15, 2019 Assessment & Plan (1) Recurrent falls: Butch Pina is a 63 y/o male with poorly controlled type 2 diabetes mellitus and Parkinson's disease who presented with ambulatory dysfunction, fall, and fever. Ambulatory dysfunction/weakness with fever and leukopenia (suspicious for anaplasmosis/ tick borne disease) Gradually worsening ambulatory dysfunction over several months, but acutely worsened in the last week - today clinically better, able to get up from bed and go to the bathroom hx of deer tick bites ye. in the last 2 weeks Neutropenic to 2.67, elevated AST to 45, febrile to 37.7 on admission, currently pt is pancytopenic - Lyme Ab negative Anaplasmosis smear - negative - anaplasma PCR- pending - Ehrlichiosis PCR - pending Empiric anaplasmosis/ tick borne dis. treatment doxycycline 100 mg IV twice daily x10-day course Suspect he has a substantial amount of deconditioning independent of acute illness, will likely need NISHANT. PT/OT ordered Present on Admission?: Yes (2) DM type 2 (diabetes mellitus, type 2): - poorly controlled - HbA1c 13.3% (04/15) Per patient's family he rarely takes his medications due to his confusion in the last week, and overall difficulty managing medications Hold PAINTING TECHNICIAN oral anti-glycemics pharmacy consulted for glycemic management Possible encephalopathy -Per family patient more confused in the past week -Possibly secondary to underlying etiology, in the setting of Parkinson's -Currently patient seems to be alert and oriented, however anxious and teary on my exam, will continue to monitor his mental status Present on Admission?: Yes (3) Parkinson disease: Patient has a deep brain stimulator which is effective in helping control his tremors Continue PAINTING TECHNICIAN Sinemet 2 tabs p.o. 4 times daily Continue PAINTING TECHNICIAN Azilect 1 mg p.o. every morning Back pain/spasm status post spinal fusion - will add tylenol as needed Continue oxycodone 5 mg p.o. every 4 hours as needed (4) Pancytopenia: -Likely secondary to underlying process, concern for viral etiology or tickborne disease -As above, patient has exposure to deer ticks -Started treatment with doxycycline, seems to be clinically improving -We will continue to monitor CBC (5) Hypertension: -Currently well controlled Cont irbesartan 300 mg p.o. nightly DVT prophylaxis: SCDs. Pharmacologic prophylaxis held in the setting of thrombocytopenia CODE STATUS: Full code Subjective No acute events overnight. Patient denies any chest pain, shortness of breath, abdominal pain, nausea, vomiting. He feels little anxious being in the ho spital, he is worried that this is worsening his parkinsonism. at the bedside. Per patient is already doing much better, he was able to get up from bed to go to the bathroom and previously he was not able to move when she found him on the floor at home. Review of Systems Review of Systems: All systems reviewed & are unremarkable except as noted in HPI & below Constitutional: + fatigue and + weakness Respiratory: no cough, no dyspnea and no pain on inspiration Cardiovascular: no chest pain, no dyspnea on exertion, no palpitations and no edema Gastrointestinal: no abdominal pain, no nausea and no vomiting Physical Exam Physical Exam: General: Elderly male laying in bed, in no acute distress. Somewhat anxious, intermittently tearful. HEENT: Atraumatic, normocephalic. No facial asymmetry. PERRL, EOMI, Moist mucous membranes, posterior pharynx without erythema/exudate. Uvula midline. Pulmonary: CTAB no wheezes, rales, or rhonchi. No increase work of breathing. No respiratory distress. Cardiac: RRR, no murmur, rub, gallop, but some ectopy. No LE edema, distal pulses 2+ Abdomen: Nontender, nondistended, soft, obese. Reducible umbilical hernia present. normal bowel sounds Skin: No rashes or lesions, warm, dry Extremities: Moves all 4 extremity spontaneously, no LE edema noted Neuro/Psych: Alert and oriented x3, speech fluent, moves all 4 extremity spontaneously, somewhat anxious during the interview, and intermittently tearful Results & Data Vital Signs (Past 12 Hours) Vital Signs Temp Pulse Resp BP Pulse Ox 04/15/19 14:47 36.5 C 78 17 120/61 95 04/15/19 11:39 36.8 C 80 19 112/66 95 Laboratory Results 04/15/19 04/15/19 04/15/19 Range/Units 20:57 16:29 12:19 WBC (4.8-10.8) K/uL RBC (4.7-6.1) M/uL Hgb (14.0-18.0) g/dL Hct (42-52) % MCV (80-100) fL MCH (25-34) pg MCHC (32-36) g/dL RDW Std Deviation (36.4-46.3) fL RDW Coeff of Genevieve (11.5-14.5) % Plt Count (130-400) K/uL MPV (7.4-10.4) fL Neutrophils % (Manual) % Lymphocytes % (Manual) % Monocytes % (Manual) % Basophils % (Manual) % Neutrophils # (Manual) (1.4-6.5) K/uL Total Absolute Neuts (1.4-6.5) K/uL Lymphocytes # (Manual) (1.2-3.4) K/uL Total Abs Lymphocytes (1.2-3.4) K/uL Monocytes # (Manual) (0.11-0.59) K/uL Basophils # (Manual) (0-0.2) K/uL RBC Morphology Sodium (136-145) mmol/L Potassium (3.5-5.1) mmol/L Chloride (98-107) mmol/L Carbon Dioxide (21-32) mmol/L Anion Gap (3-11) BUN (7-18) mg/dl Creatinine (0.6-1.4) mg/dl Est Cr Clr Drug Dosing ml/min Est GFR ( Amer) Est GFR (Non-Af Amer) BUN/Creatinine Ratio (10-20) Glucose (70-99) mg/dl POC Glucose 146 H 146 H 211 H (70-99) Estimat Average Glucose mg/dl Hemoglobin A1c (4.5-5.6) % Calcium (8.5-10.1) mg/dl Urine Color Urine Appearance (Clear) Urine pH (4.5-7.5) Ur Specific [place] (1.000-1.030) Urine Protein (Negative) Urine Glucose (UA) (Negative) Urine Ketones (Negative) Urine Blood (Negative) Urine Nitrite (Negative) Urine Bilirubin (Negative) Urine Urobilinogen (Negative) Ur Leukocyte Esterase (Negative) Urine WBC (Auto) (0-5) /hpf Urine RBC (Auto) (0-4) /hpf U Hyaline Cast (Auto) (0-5) /lpf U Epithel Cells (Auto) (0-5) /lpf Urine Bacteria (Auto) (Negative) Anaplasma Smear A. phagocytophilum DNA 04/15/19 04/15/19 04/15/19 Range/Units 06:44 06:44 06:44 WBC 2.50 L (4.8-10.8) K/uL RBC 4.43 L (4.7-6.1) M/uL Hgb 13.2 L (14.0-18.0) g/dL Hct 37.0 L (42-52) % MCV 83.5 (80-100) fL MCH 29.8 (25-34) pg MCHC 35.7 (32-36) g/dL RDW Std Deviation 46.1 (36.4-46.3) fL RDW Coeff of Genevieve 15.0 H (11.5-14.5) % Plt Count 57 L (130-400) K/uL MPV 10.3 (7.4-10.4) fL Neutrophils % (Manual) 53.0 % Lymphocytes % (Manual) 40.9 % Monocytes % (Manual) 5.2 % Basophils % (Manual) 0.9 % Neutrophils # (Manual) 1.33 L (1.4-6.5) K/uL Total Absolute Neuts 1.33 L (1.4-6.5) K/uL Lymphocytes # (Manual) 1.02 L (1.2-3.4) K/uL Total Abs Lymphocytes 1.02 L (1.2-3.4) K/uL Monocytes # (Manual) 0.13 (0.11-0.59) K/uL Basophils # (Manual) 0.02 (0-0.2) K/uL RBC Morphology Unremarkable Sodium 135 L (136-145) mmol/L Potassium 3.4 L (3.5-5.1) mmol/L Chloride 106 (98-107) mmol/L Carbon Dioxide 23 (21-32) mmol/L Anion Gap 6.0 (3-11) BUN 13 (7-18) mg/dl Creatinine 0.73 (0.6-1.4) mg/dl Est Cr Clr Drug Dosing 115.4 ml/min Est GFR ( Amer) 113.6 Est GFR (Non-Af Amer) 98.0 BUN/Creatinine Ratio 17.3 (10-20) Glucose 89 (70-99) mg/dl POC Glucose (70-99) Estimat Average Glucose 335 mg/dl Hemoglobin A1c 13.3 H (4.5-5.6) % Calcium 8.2 L (8.5-10.1) mg/dl Urine Color Urine Appearance (Clear) Urine pH (4.5-7.5) Ur Specific [place] (1.000-1.030) Urine Protein (Negative) Urine Glucose (UA) (Negative) Urine Ketones (Negative) Urine Blood (Negative) Urine Nitrite (Negative) Urine Bilirubin (Negative) Urine Urobilinogen (Negative) Ur Leukocyte Esterase (Negative) Urine WBC (Auto) (0-5) /hpf Urine RBC (Auto) (0-4) /hpf U Hyaline Cast (Auto) (0-5) /lpf U Epithel Cells (Auto) (0-5) /lpf Urine Bacteria (Auto) (Negative) Anaplasma Smear A. phagocytophilum DNA 04/15/19 04/15/19 04/15/19 Range/Units 06:44 05:52 00:47 WBC (4.8-10.8) K/uL RBC (4.7-6.1) M/uL Hgb (14.0-18.0) g/dL Hct (42-52) % MCV (80-100) fL MCH (25-34) pg MCHC (32-36) g/dL RDW Std Deviation (36.4-46.3) fL RDW Coeff of Genevieve (11.5-14.5) % Plt Count (130-400) K/uL MPV (7.4-10.4) fL Neutrophils % (Manual) % Lymphocytes % (Manual) % Monocytes % (Manual) % Basophils % (Manual) % Neutrophils # (Manual) (1.4-6.5) K/uL Total Absolute Neuts (1.4-6.5) K/uL Lymphocytes # (Manual) (1.2-3.4) K/uL Total Abs Lymphocytes (1.2-3.4) K/uL Monocytes # (Manual) (0.11-0.59) K/uL Basophils # (Manual) (0-0.2) K/uL RBC Morphology Sodium (136-145) mmol/L Potassium (3.5-5.1) mmol/L Chloride (98-107) mmol/L Carbon Dioxide (21-32) mmol/L Anion Gap (3-11) BUN (7-18) mg/dl Creatinine (0.6-1.4) mg/dl Est Cr Clr Drug Dosing ml/min Est GFR ( Amer) Est GFR (Non-Af Amer) BUN/Creatinine Ratio (10-20) Glucose (70-99) mg/dl POC Glucose 125 H 125 H (70-99) Estimat Average Glucose mg/dl Hemoglobin A1c (4.5-5.6) % Calcium (8.5-10.1) mg/dl Urine Color Urine Appearance (Clear) Urine pH (4.5-7.5) Ur Specific [place] (1.000-1.030) Urine Protein (Negative) Urine Glucose (UA) (Negative) Urine Ketones (Negative) Urine Blood (Negative) Urine Nitrite (Negative) Urine Bilirubin (Negative) Urine Urobilinogen (Negative) Ur Leukocyte Esterase (Negative) Urine WBC (Auto) (0-5) /hpf Urine RBC (Auto) (0-4) /hpf U Hyaline Cast (Auto) (0-5) /lpf U Epithel Cells (Auto) (0-5) /lpf Urine Bacteria (Auto) (Negative) Anaplasma Smear A. phagocytophilum DNA Pending 04/14/19 04/14/19 Range/Units 22:15 20:24 WBC (4.8-10.8) K/uL RBC (4.7-6.1) M/uL Hgb (14.0-18.0) g/dL Hct (42-52) % MCV (80-100) fL MCH (25-34) pg MCHC (32-36) g/dL RDW Std Deviation (36.4-46.3) fL RDW Coeff of Genevieve (11.5-14.5) % Plt Count (130-400) K/uL MPV (7.4-10.4) fL Neutrophils % (Manual) % Lymphocytes % (Manual) % Monocytes % (Manual) % Basophils % (Manual) % Neutrophils # (Manual) (1.4-6.5) K/uL Total Absolute Neuts (1.4-6.5) K/uL Lymphocytes # (Manual) (1.2-3.4) K/uL Total Abs Lymphocytes (1.2-3.4) K/uL Monocytes # (Manual) (0.11-0.59) K/uL Basophils # (Manual) (0-0.2) K/uL RBC Morphology Sodium (136-145) mmol/L Potassium (3.5-5.1) mmol/L Chloride (98-107) mmol/L Carbon Dioxide (21-32) mmol/L Anion Gap (3-11) BUN (7-18) mg/dl Creatinine (0.6-1.4) mg/dl Est Cr Clr Drug Dosing ml/min Est GFR ( Amer) Est GFR (Non-Af Amer) BUN/Creatinine Ratio (10-20) Glucose (70-99) mg/dl POC Glucose (70-99) Estimat Average Glucose mg/dl Hemoglobin A1c (4.5-5.6) % Calcium (8.5-10.1) mg/dl Urine Color Yellow Urine Appearance Clear (Clear) Urine pH 5.0 (4.5-7.5) Ur Specific [place] 1.040 H (1.000-1.030) Urine Protein Trace H (Negative) Urine Glucose (UA) 3+ H (Negative) Urine Ketones 4+ H (Negative) Urine Blood Trace H (Negative) Urine Nitrite Negative (Negative) Urine Bilirubin Negative (Negative) Urine Urobilinogen Negative (Negative) Ur Leukocyte Esterase Negative (Negative) Urine WBC (Auto) 1-5 (0-5) /hpf Urine RBC (Auto) 0-4 (0-4) /hpf U Hyaline Cast (Auto) 0 (0-5) /lpf U Epithel Cells (Auto) 5-10 H (0-5) /lpf Urine Bacteria (Auto) Negative (Negative) Anaplasma Smear See Comment A. phagocytophilum DNA Medications Administered Current Inpatient Medications Acetaminophen (Tylenol) 650 mg PO Q4H PRN PRN Reason: pain/fever Stop: 05/14/19 23:30 Aspirin (Ecotrin Ectab) 81 mg PO HS ZOHRA Stop: 05/15/19 20:59 Carbidopa/Levodopa (Sinemet 25/100 Mg) 2 tab PO QID ZOHRA Stop: 05/15/19 08:59 Last Admin: 04/15/19 17:29 Dose: 2 tab Documented by: Cyanocobalamin (Vitamin B-12) 100 mcg PO QAM ZOHRA Stop: 05/15/19 08:59 Last Admin: 04/15/19 08:17 Dose: 100 mcg Documented by: Dextrose (Dextrose 50%) 25 - 50 ml IV UD PRN; Protocol PRN Reason: Hypoglycemia Protocol Stop: 05/14/19 23:30 Finasteride (Proscar) 5 mg PO HS ZOHRA Stop: 05/15/19 20:59 Glucagon (Glucagen) 1 mg SQ UD PRN; Protocol PRN Reason: Hypoglycemia Protocol Stop: 05/14/19 23:30 Glucose (Dex4 Glucose) 4 - 8 tabs PO UD PRN; Protocol PRN Reason: Hypoglycemia Protocol Stop: 05/14/19 23:30 Glucose (Glucose 40%) 15 - 30 gm PO UD PRN; Protocol PRN Reason: Hypoglycemia Protocol Stop: 05/14/19 23:30 Potassium Chloride/Sodium Chloride (Normal Saline W/20 Meq Kcl) 20 meq in 1,000 mls @ 80 mls/hr IV .[id number] [facility] Stop: 05/14/19 22:44 Last Admin: 04/15/19 12:54 Dose: 80 mls/hr Documented by: Doxycycline Hyclate 100 mg/ (Dextrose) 110 mls @ 50 mls/hr IV Q12H [facility]OH[facility] Stop: 04/29/19 00:00 Last Infusion: 04/15/19 14:56 Dose: Infused Documented by: Insulin Aspart (Novolog Flexpen) 0 units SC ACHS ZOH[facility] Stop: 05/15/19 00:00 Last Admin: 04/15/19 17:30 Dose: 13 units Documented by: Insulin Aspart (Novolog Flexpen) 0 units SC 0000 [facility] Stop: 04/16/19 00:01 Insulin Glargine (Lantus Solostar Pen) 0 units SQ BID ZOHRA; Protocol Stop: 05/15/19 20:59 Irbesartan (Avapro) 300 mg PO HS [facility]OHRA Stop: 05/15/19 20:59 Loratadine (Claritin) 10 mg PO HS ZOHRA Stop: 05/15/19 20:59 Meloxicam (Mobic) 15 mg PO DAILY PRN PRN Reason: Headache Stop: 05/14/19 23:30 Miscellaneous (Carbohydrates For Hypoglycemia) 15 - 30 gm PO UD PRN PRN Reason: Hypoglycemia Protocol Stop: 05/14/19 23:30 Miscellaneous (Order Awaiting Action) 1 ea N/A QS ZOHRA Stop: 05/15/19 00:00 Last Admin: 04/15/19 13:07 Dose: Not Given Documented by: Miscellaneous Information (Consult Glycemic Management Pharmacy) 1 ea N/A UD PRN; Protocol PRN Reason: Consult Stop: 05/14/19 23:49 Oxycodone HCl (Roxicodone Immediate Rel) 5 mg PO Q4H PRN PRN Reason: Pain Stop: 04/28/19 23:45 Vitamin D (Vitamin D3) [facility] [place] 05/15/19 08:59 Last Admin: 04/15/19 08:17 Dose: 400 units Documented by:
[2019-04-15] MEDS: INSULIN GLARGINE SOLOSTAR 100 UNITS/ML 3 ML PEN SQ SCH (22:06)
[2019-04-15] MEDS: ASPIRIN 81 MG ECTAB PO SCH (22:07)
[2019-04-15] MEDS: IRBESARTAN 150 MG TAB PO SCH (22:07)
[2019-04-15] MEDS: LORATADINE 10 MG TAB PO SCH (22:08)
[2019-04-15] MEDS: FINASTERIDE 5 MG TAB PO SCH (22:08)
[2019-04-16] MEDS ORDERED: INSULIN ASPART 100 UNITS/ML 3 ML PEN SC SCH
[2019-04-16] MEDS: DOXYCYCLINE HYCLATE 100 MG in DEXTROSE 5% 100 ML IV SCH ×3 (00:17→23:51)
[2019-04-16] MEDS: NSS + 20MEQ KCL 20 MEQ/1,000 ML BAG IV SCH ×3 (00:18→23:51)
[2019-04-16] MEDS: AZILECT~ORDER AWAITING ACTION SCH ×4 (00:33→23:28)
[2019-04-16 06:57] LABS: Hematocrit (blood only) 35.8 % (42-52); Hemoglobin 12.7 g/dL (14.0-18.0); Mean Corpuscular Hemoglobin 29.5 pg (25-34); Mean Corpuscular Hgb Conc 35.5 g/dL (32-36); Mean Corpuscular Volume 83.1 fL (80-100); RDW Coefficient of Variation 15.2 % (11.5-14.5); RDW Standard Deviation 46.4 fL (36.4-46.3); Red Blood Count 4.31 M/uL (4.7-6.1); White Blood Count 3.56 K/uL (4.8-10.8)
[2019-04-16 07:00] LABS: Mean Platelet Volume 10.1 fL (7.4-10.4); Platelet Count 63 K/uL (130-400)
[2019-04-16 07:27] LABS: BUN Creatinine Ratio 23.2 (10-20); Calcium 8.4 mg/dl (8.5-10.1); Creatinine Clr Calc Pharmacy 120.4 ml/min; Est GFR (African American) 115.6; Est GFR (Non-African American) 99.7; Potassium 3.1 mmol/L (3.5-5.1)
[2019-04-16 07:52] LABS: Basophils # (auto) 0.08 K/uL (0-0.2); Basophils % (auto) 2.2 %; Eosinophils # (auto) 0.11 K/uL (0-0.5); Eosinophils % (auto) 3.1 %; Lymphocytes # (auto) 1.87 K/uL (1.2-3.4); Lymphocytes % (auto) 52.5 %; Monocytes # (auto) 0.58 K/uL (0.11-0.59); Monocytes % (auto) 16.3 %; Neutrophils # (auto) 0.92 K/uL (1.4-6.5); Neutrophils % (auto) 25.9 %
[2019-04-16] MEDS: CHOLECALCIFEROL (VITAMIN D) 400 UNITS TABLET PO SCH (07:52)
[2019-04-16] MEDS: CARBIDOPA/LEVODOPA 25/100MG TAB PO SCH ×4 (07:52→21:54)
[2019-04-16] MEDS: CYANOCOBALAMIN (VITAMIN B-12) 100 MCG TABLET PO SCH (08:12)
[2019-04-16] MEDS: INSULIN GLARGINE SOLOSTAR 100 UNITS/ML 3 ML PEN SQ SCH ×2 (08:14→21:54)
[2019-04-16] MEDS: INSULIN ASPART 100 UNITS/ML 3 ML PEN SC SCH ×4 (08:14→21:55)
--- NOTE | 2019-04-16 09:11 | Hospitalist Progress Note ---
Date of Service April 16, 2019 Assessment & Plan (1) Recurrent falls: Butch Pina is a 63 y/o male with poorly controlled type 2 diabetes mellitus and Parkinson's disease who presented with ambulatory dysfunction, fall, and fever. Ambulatory dysfunction/weakness with fever and leukopenia (suspicious for anaplasmosis/ tick borne disease) Gradually worsening ambulatory dysfunction over several months, but acutely worsened in the last week - today clinically better, able to get up from bed, currently sitting in the chair comfortably hx of deer tick bites ye. in the last 2 weeks Neutropenic to 2.67, elevated AST to 45, febrile to 37.7 on admission, currently pt is pancytopenic - Lyme Ab negative Anaplasmosis smear - negative - anaplasma PCR- pending - Ehrlichiosis PCR - pending Empiric anaplasmosis/ tick borne dis. treatment doxycycline 100 mg IV twice daily x10-day course Suspect he has a substantial amount of deconditioning independent of acute illness, will likely need NISHANT. 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 4 times daily Continue LEAD ASSISTANT MANAGER Azilect 1 mg p.o. every morning Back pain/spasm status post spinal fusion - tylenol as needed oxycodone 5 mg p.o. every 4 hours as needed (4) Pancytopenia: -Likely secondary to underlying process, concern for viral etiology or tickborne disease -As above, patient has exposure to deer ticks -Started treatment with doxycycline, seems to be clinically improving -We will continue to monitor CBC (5) Hypertension: -Currently well controlled Cont irbesartan 300 mg p.o. nightly Hypokalemia, Hypomagnesemia - replete and monitor - goal K>4, Mg>2 DVT prophylaxis: SCDs. Pharmacologic prophylaxis held in the setting of thrombocytopenia CODE STATUS: Full code Subjective No acute events overnight. Patient denies any chest pain, shortness of breath, abdominal pain, nausea, vomiting. He is sitting in the chair, comfortable, says that he feels much better today, was able to also walk a little and he feels little stronger. Review of Systems Review of Systems: All systems reviewed & are unremarkable except as noted in HPI & below Constitutional: + chills; no fever Respiratory: no cough, no dyspnea and no pain on inspiration Cardiovascular: no chest pain, no dyspnea on exertion, no palpitations and no edema Gastrointestinal: no abdominal pain, no early satiety, no nausea and no vomiting Physical Exam Physical Exam: General: Elderly male sitting in chair, in no acute distress. HEENT: Atraumatic, normocephalic. No facial asymmetry. PERRL, EOMI, Moist mucous membranes, posterior pharynx without erythema/exudate. Uvula midline. Pulmonary: CTAB no wheezes, rales, or rhonchi. No increase work of breathing. No respiratory distress. Cardiac: RRR, no murmur, rub, gallop, but some ectopy. No LE edema, distal pulses 2+ Abdomen: Nontender, nondistended, soft, obese. Reducible umbilical hernia present. normal bowel sounds Skin: No rashes or lesions, warm, dry Extremities: Moves all 4 extremity spontaneously, no LE edema noted Neuro/Psych: Alert and oriented x3, speech fluent, moves all 4 extremity spontaneously Results & Data Vital Signs (Past 12 Hours) Vital Signs Temp Pulse Resp BP Pulse Ox 04/16/19 07:11 36.5 C 65 16 132/72 96 04/15/19 23:36 36.8 C 73 17 126/65 94 Laboratory Results 04/16/19 04/16/19 04/16/19 Range/Units 07:27 06:42 06:42 WBC (4.8-10.8) K/uL RBC (4.7-6.1) M/uL Hgb (14.0-18.0) g/dL Hct (42-52) % MCV (80-100) fL MCH (25-34) pg MCHC (32-36) g/dL RDW Std Deviation (36.4-46.3) fL RDW Coeff of Genevieve (11.5-14.5) % Plt Count (130-400) K/uL MPV (7.4-10.4) fL Immature Gran % (Auto) % Neut % (Auto) % Lymph % (Auto) % [place] % (Auto) % Eos % (Auto) % Baso % (Auto) % Immature Gran # (Auto) (0.00-0.02) K/uL Neut # (Auto) (1.4-6.5) K/uL Lymph # (Auto) (1.2-3.4) K/uL [place] # (Auto) (0.11-0.59) K/uL Eos # (Auto) (0-0.5) K/uL Baso # (Auto) (0-0.2) K/uL Sodium 138 (136-145) mmol/L Potassium 3.1 L (3.5-5.1) mmol/L Chloride 108 H (98-107) mmol/L Carbon Dioxide 23 (21-32) mmol/L Anion Gap 7.0 (3-11) BUN 16 (7-18) mg/dl Creatinine 0.70 (0.6-1.4) mg/dl Est Cr Clr Drug Dosing 120.4 ml/min Est GFR ( Amer) 115.6 Est GFR (Non-Af Amer) 99.7 BUN/Creatinine Ratio 23.2 H (10-20) Glucose 140 H (70-99) mg/dl POC Glucose 156 H (70-99) Calcium 8.4 L (8.5-10.1) mg/dl E.chaffeensis DNA (PCR) Pending 04/16/19 04/16/19 04/15/19 Range/Units 06:42 00:23 20:57 WBC 3.56 L (4.8-10.8) K/uL RBC 4.31 L (4.7-6.1) M/uL Hgb 12.7 L (14.0-18.0) g/dL Hct 35.8 L (42-52) % MCV 83.1 (80-100) fL MCH 29.5 (25-34) pg MCHC 35.5 (32-36) g/dL RDW Std Deviation 46.4 H (36.4-46.3) fL RDW Coeff of Genevieve 15.2 H (11.5-14.5) % Plt Count 63 L (130-400) K/uL MPV 10.1 (7.4-10.4) fL Immature Gran % (Auto) 0.0 % Neut % (Auto) 25.9 % Lymph % (Auto) 52.5 % [place] % (Auto) 16.3 % Eos % (Auto) 3.1 % Baso % (Auto) 2.2 % Immature Gran # (Auto) 0.00 (0.00-0.02) K/uL Neut # (Auto) 0.92 L* (1.4-6.5) K/uL Lymph # (Auto) 1.87 (1.2-3.4) K/uL [place] # (Auto) 0.58 (0.11-0.59) K/uL Eos # (Auto) 0.11 (0-0.5) K/uL Baso # (Auto) 0.08 (0-0.2) K/uL Sodium (136-145) mmol/L Potassium (3.5-5.1) mmol/L Chloride (98-107) mmol/L Carbon Dioxide (21-32) mmol/L Anion Gap (3-11) BUN (7-18) mg/dl Creatinine (0.6-1.4) mg/dl Est Cr Clr Drug Dosing ml/min Est GFR ( Amer) Est GFR (Non-Af Amer) BUN/Creatinine Ratio (10-20) Glucose (70-99) mg/dl POC Glucose 139 H 146 H (70-99) Calcium (8.5-10.1) mg/dl E.chaffeensis DNA (PCR) 04/15/19 04/15/19 Range/Units 16:29 12:19 WBC (4.8-10.8) K/uL RBC (4.7-6.1) M/uL Hgb (14.0-18.0) g/dL Hct (42-52) % MCV (80-100) fL MCH (25-34) pg MCHC (32-36) g/dL RDW Std Deviation (36.4-46.3) fL RDW Coeff of Genevieve (11.5-14.5) % Plt Count (130-400) K/uL MPV (7.4-10.4) fL Immature Gran % (Auto) % Neut % (Auto) % Lymph % (Auto) % [place] % (Auto) % Eos % (Auto) % Baso % (Auto) % Immature Gran # (Auto) (0.00-0.02) K/uL Neut # (Auto) (1.4-6.5) K/uL Lymph # (Auto) (1.2-3.4) K/uL [place] # (Auto) (0.11-0.59) K/uL Eos # (Auto) (0-0.5) K/uL Baso # (Auto) (0-0.2) K/uL Sodium (136-145) mmol/L Potassium (3.5-5.1) mmol/L Chloride (98-107) mmol/L Carbon Dioxide (21-32) mmol/L Anion Gap (3-11) BUN (7-18) mg/dl Creatinine (0.6-1.4) mg/dl Est Cr Clr Drug Dosing ml/min Est GFR ( Amer) Est GFR (Non-Af Amer) BUN/Creatinine Ratio (10-20) Glucose (70-99) mg/dl POC Glucose 146 H 211 H (70-99) Calcium (8.5-10.1) mg/dl E.chaffeensis DNA (PCR) Medications Administered Current Inpatient Medications Acetaminophen (Tylenol) 650 mg PO Q4H PRN PRN Reason: pain/fever Stop: 05/14/19 23:30 Aspirin (Ecotrin Ectab) 81 mg PO HS ZOHRA Stop: 05/15/19 20:59 Last Admin: 04/15/19 22:07 Dose: 81 mg Documented by: Carbidopa/Levodopa (Sinemet 25/100 Mg) 2 tab PO QID [facility]OHRA Stop: 05/15/19 08:59 Last Admin: 04/16/19 07:52 Dose: 2 tab Documented by: Cyanocobalamin (Vitamin B-12) 100 mcg PO QAM ZOHRA Stop: 05/15/19 08:59 Last Admin: 04/16/19 08:12 Dose: 100 mcg Documented by: Dextrose (Dextrose 50%) 25 - 50 ml IV UD PRN; Protocol PRN Reason: Hypoglycemia Protocol Stop: 05/14/19 23:30 Finasteride (Proscar) 5 mg PO HS ZOHRA Stop: 05/15/19 20:59 Last Admin: 04/15/19 22:08 Dose: 5 mg Documented by: Glucagon (Glucagen) 1 mg SQ UD PRN; Protocol PRN Reason: Hypoglycemia Protocol Stop: 05/14/19 23:30 Glucose (Dex4 Glucose) 4 - 8 tabs PO UD PRN; Protocol PRN Reason: Hypoglycemia Protocol Stop: 05/14/19 23:30 Glucose (Glucose 40%) 15 - 30 gm PO UD PRN; Protocol PRN Reason: Hypoglycemia Protocol Stop: 05/14/19 23:30 Potassium Chloride/Sodium Chloride (Normal Saline W/20 Meq Kcl) 20 meq in 1,000 mls @ 80 mls/hr IV .[id number] [facility]OH[facility] Stop: 05/14/19 22:44 Last Admin: 04/16/19 00:18 Dose: 80 mls/hr Documented by: Doxycycline Hyclate 100 mg/ (Dextrose) 110 mls @ 50 mls/hr IV Q12H [facility] Stop: 04/29/19 00:00 Last Infusion: 04/16/19 02:26 Dose: Infused Documented by: Insulin Aspart (Novolog Flexpen) 0 units SC ACHS ZOH[facility] Stop: 05/15/19 00:00 Last Admin: 04/16/19 08:14 Dose: 15 units Documented by: Insulin Glargine (Lantus Solostar Pen) 0 units SQ BID ZOHRA; Protocol Stop: 05/15/19 20:59 Last Admin: 04/16/19 08:14 Dose: 30 units Documented by: Irbesartan (Avapro) 300 mg PO [facility] Stop: 05/15/19 20:59 Last Admin: 04/15/19 22:07 Dose: 300 mg Documented by: Loratadine (Claritin) 10 mg PO HS [facility] Stop: 05/15/19 20:59 Last Admin: 04/15/19 22:08 Dose: 10 mg Documented by: Miscellaneous (Carbohydrates For Hypoglycemia) 15 - 30 gm PO UD PRN PRN Reason: Hypoglycemia Protocol Stop: 05/14/19 23:30 Miscellaneous (Order Awaiting Action) 1 ea N/A QS ZOHRA Stop: 05/15/19 00:00 Last Admin: 04/16/19 07:12 Dose: Not Given Documented by: Miscellaneous Information (Consult Glycemic Management Pharmacy) 1 ea N/A UD PRN; Protocol PRN Reason: Consult Stop: 05/14/19 23:49 Oxycodone HCl (Roxicodone Immediate Rel) 5 mg PO Q4H PRN PRN Reason: Pain Stop: 04/28/19 23:45 Potassium Chloride (Klor-Con M20) 40 meq PO NOW STA Stop: 04/16/19 09:05 Vitamin D (Vitamin D3) [address] [facility] [place] [facility]: 05/15/19 08:59 Last Admin: 04/16/19 07:52 Dose: 400 units Documented by:
[2019-04-16] MEDS ORDERED: POTASSIUM CHLORIDE 20 MEQ TABCR PO ONE ×2 (09:30→15:15)
[2019-04-16 10:11] LABS: Magnesium 1.7 mg/dl (1.8-2.4); Phosphorus 3.8 mg/dl (2.5-4.9)
--- NOTE | 2019-04-16 10:44 | Pharmacy Report ---
Pharmacy Glycemic Short Note 2 - Date of Service April 16, 2019 - Glycemic Short BSG Results (Last 24 hours): 04/15/19 04/15/19 04/15/19 12:19 16:29 20:57 Glucose POC Glucose 211 H 146 H 146 H 04/16/19 04/16/19 04/16/19 00:23 06:42 07:27 Glucose 140 H POC Glucose 139 H 156 H OUTPATIENT ANTIDIABETIC REGIMEN: * Lantus 54 units SQ BID + Novolog TID with meals (22 units/12 units/26 units) * Farxiga 10 mg qAM + metformin (currently being held) * non-compliant with outpatient regimen * A1c = 13.3% (04/15/19) ASSESSMENT: 04/16: * Butch received 82 units of insulin yesterday with BSGs ranging fro 89 to 211 mg/dL * 60 units of basal * 22 units of bolus (pt was NPO during part of this time) * Fasting BSG of 156 mg/dL is slightly above goal. Will continue to titrate basal insulin. Yesterday patient received ~45% of outpatient basal dose. * Post prandial BSGs are mostly at goal with the exception of lunch. Will tighten carb coverage only. 04/15: * Mr. Pina is a 63 yr old male with h/o Parkinsons disease admitted for recurrent falls, fever, and suspicion for anaplasmosis infection. * Poorly controlled T2DM. Patient's family reports non-compliance with anti- diabetic regimen due to confusion and difficulty managing medications. * Fasting BSG of 125 mg/dL is at goal. Butch received a reduced dose of basal insulin yesterday; total of 84 units of Lantus (of note PM dose given late, ~0100). I further reduced this dose by ~25% for NPO status this morning. Patient was ordered a diet with lunch, therefore PM dose will be titrated upward. * Will utilize weight based Novolog CF/CR (stress of 2-3) rather than home doses due to non compliance. PLAN FOR INPATIENT GLYCEMIC CONTROL: * Hold outpatient oral diabetes medications * Increase Basal insulin * Lantus 30 units SQ this morning, then per scale BID: * 25 units for BSG < 120 * 35 units for BSG 120-180 * 40 units for BSG > 180 * Bolus insulin * NovoLog per scale ACHS or Q6hrs while NPO * Goal Range: Low 120 mg/dL - High 150 mg/dL * Correction Factor: 15 mg/dL/unit * Tighten Nutritional / Prandial insulin per carb ratio of 1 unit per 4 grams CHO consumed PLAN FOR DISCHARGE: * A1c = 13.3%. A1c elevation due mostly to medication non-compliance. Patient reports taking medications inconsistently over the past few months for various reasons including urinary incontinence with Farxiga. In the process of switching Endocrinologists. * Patient requested information on other medication options (CDE provided handouts on GLP-1 and DPP-4) * Goal A1c <8% based on comorbidities * Insulin recommendations pending additional BSG data
[2019-04-16] MEDS ORDERED: MAGNESIUM SULFATE / D5W 1 GM/100 ML BAG IV ONE (15:15)
[2019-04-16] MEDS: FINASTERIDE 5 MG TAB PO SCH (21:54)
[2019-04-16] MEDS: IRBESARTAN 150 MG TAB PO SCH (21:54)
[2019-04-16] MEDS: LORATADINE 10 MG TAB PO SCH (21:54)
[2019-04-16] MEDS: ASPIRIN 81 MG ECTAB PO SCH (21:54)
[2019-04-17 06:06] LABS: Hematocrit (blood only) 38.7 % (42-52); Hemoglobin 13.4 g/dL (14.0-18.0); Mean Corpuscular Hemoglobin 29.5 pg (25-34); Mean Corpuscular Hgb Conc 34.6 g/dL (32-36); Mean Corpuscular Volume 85.1 fL (80-100); Mean Platelet Volume 10.5 fL (7.4-10.4); Platelet Count 102 K/uL (130-400); RDW Coefficient of Variation 15.3 % (11.5-14.5); RDW Standard Deviation 47.4 fL (36.4-46.3); Red Blood Count 4.55 M/uL (4.7-6.1); White Blood Count 4.13 K/uL (4.8-10.8)
[2019-04-17 06:35] LABS: BUN Creatinine Ratio 14.3 (10-20); Calcium 8.5 mg/dl (8.5-10.1); Creatinine Clr Calc Pharmacy 113.9 ml/min; Est GFR (African American) 112.8; Est GFR (Non-African American) 97.3; Potassium 3.7 mmol/L (3.5-5.1)
--- NOTE | 2019-04-17 06:45 | Hospitalist Progress Note ---
Date of Service April 17, 2019 Assessment & Plan (1) Recurrent falls: Butch Pina is a 63 y/o male with poorly controlled type 2 diabetes mellitus and Parkinson's disease who presented with ambulatory dysfunction, fall, and fever. Ambulatory dysfunction/weakness with fever and leukopenia (secondary to anaplasmosis/ tick borne disease) Gradually worsening ambulatory dysfunction over several months, but acutely worsened in the last week - today clinically better, walking around with physical therapist Anaplasma infection - confirmed by PCR hx of deer tick bites ye. in the last 2 weeks Neutropenic to 2.67, elevated AST to 45, febrile to 37.7 on admission, currently pt is pancytopenic - Lyme Ab negative Anaplasmosis smear - negative - Anaplasma PCR- positive - Ehrlichiosis PCR - pending Empiric anaplasmosis/ tick borne dis. treatment with doxycycline 100 mg IV twice daily started on admission, Given PCR confirmation of Anaplasma, plan for 14 day treatment course plan for inpt rehab (2) DM type 2 (diabetes mellitus, type 2): - poorly controlled - HbA1c 13.3% (04/15) Per patient's family he rarely takes his medications due to his confusion in the last week, and overall difficulty managing medications Hold [employer] oral anti-glycemics pharmacy consulted for glycemic management Possible encephalopathy -Per family patient more confused in the past week -Possibly secondary to underlying etiology (anaplasma/ tick-borne inf.), in the setting of Parkinson's -Currently patient seems to be alert and oriented, however anxious and teary on my exam intermittently, will continue to monitor his mental status (3) Parkinson disease: Patient has a deep brain stimulator which is effective in helping control his tremors Continue [employer] Sinemet 2 tabs p.o. 4 times daily Continue [employer] Azilect 1 mg p.o. every morning Back pain/spasm status post spinal fusion - tylenol as needed oxycodone 5 mg p.o. every 4 hours as needed (4) Pancytopenia: Neutropenia -secondary to underlying process (anaplasma and/or other poss.tickborne disease co-infection) -As above, patient has exposure to deer ticks -Started treatment with doxycycline, he is clinically improving -We will continue to monitor CBC (5) Hypertension: -Currently well controlled Cont irbesartan 300 mg p.o. nightly Hypokalemia, Hypomagnesemia - replete and monitor - goal K>4, Mg>2 DVT prophylaxis: SCDs. Pharmacologic prophylaxis held in the setting of thrombocytopenia CODE STATUS: Full code Subjective No acute events overnight. Patient denies any chest pain, shortness of breath, abdominal pain, nausea, vomiting. He is working with physical therapist, walking around the room, feeling much better today. Review of Systems Review of Systems: All systems reviewed & are unremarkable except as noted in HPI & below Constitutional: no fever and no chills Respiratory: no cough, no dyspnea and no pain on inspiration Cardiovascular: no chest pain, no dyspnea on exertion, no palpitations and no edema Gastrointestinal: no abdominal pain, no nausea and no vomiting Physical Exam Physical Exam: General: Elderly male sitting on the edge of his bed, in no acute distress. HEENT: Atraumatic, normocephalic. No facial asymmetry. PERRL, EOMI, Moist mu cous membranes, posterior pharynx without erythema/exudate. Pulmonary: CTAB no wheezes, rales, or rhonchi. No increase work of breathing. No respiratory distress. Cardiac: RRR, no murmur, rub, gallop, but some ectopy. No LE edema, distal pulses 2+ Abdomen: Nontender, nondistended, soft, obese. normal bowel sounds Skin: No rashes or lesions, warm, dry Extremities: Moves all 4 extremities spontaneously, no LE edema noted Neuro/Psych: Alert and oriented x3, speech fluent, moves all 4 extremities spontaneously Results & Data Vital Signs (Past 12 Hours) Vital Signs Temp Pulse Resp BP Pulse Ox 04/17/19 00:15 36.4 C L 71 17 137/74 94 Laboratory Results 04/17/19 04/17/19 04/16/19 Range/Units 05:20 05:20 20:37 WBC 4.13 L (4.8-10.8) K/uL RBC 4.55 L (4.7-6.1) M/uL Hgb 13.4 L (14.0-18.0) g/dL Hct 38.7 L (42-52) % MCV 85.1 (80-100) fL MCH 29.5 (25-34) pg MCHC 34.6 (32-36) g/dL RDW Std Deviation 47.4 H (36.4-46.3) fL RDW Coeff of Genevieve 15.3 H (11.5-14.5) % Plt Count 102 L D (130-400) K/uL MPV 10.5 H (7.4-10.4) fL Immature Gran % (Auto) % Neut % (Auto) % Lymph % (Auto) % [place] % (Auto) % Eos % (Auto) % Baso % (Auto) % Immature Gran # (Auto) (0.00-0.02) K/uL Neut # (Auto) (1.4-6.5) K/uL Lymph # (Auto) (1.2-3.4) K/uL [place] # (Auto) (0.11-0.59) K/uL Eos # (Auto) (0-0.5) K/uL Baso # (Auto) (0-0.2) K/uL Sodium 141 (136-145) mmol/L Potassium 3.7 D (3.5-5.1) mmol/L Chloride 108 H (98-107) mmol/L Carbon Dioxide 25 (21-32) mmol/L Anion Gap 8.0 (3-11) BUN 10 D (7-18) mg/dl Creatinine 0.73 (0.6-1.4) mg/dl Est Cr Clr Drug Dosing 113.9 ml/min Est GFR ( Amer) 112.8 Est GFR (Non-Af Amer) 97.3 BUN/Creatinine Ratio 14.3 (10-20) Glucose 150 H (70-99) mg/dl POC Glucose 156 H (70-99) Calcium 8.5 (8.5-10.1) mg/dl Phosphorus (2.5-4.9) mg/dl Magnesium (1.8-2.4) mg/dl E.chaffeensis DNA (PCR) 04/16/19 04/16/19 04/16/19 Range/Units 16:32 12:38 07:27 WBC (4.8-10.8) K/uL RBC (4.7-6.1) M/uL Hgb (14.0-18.0) g/dL Hct (42-52) % MCV (80-100) fL MCH (25-34) pg MCHC (32-36) g/dL RDW Std Deviation (36.4-46.3) fL RDW Coeff of Genevieve (11.5-14.5) % Plt Count (130-400) K/uL MPV (7.4-10.4) fL Immature Gran % (Auto) % Neut % (Auto) % Lymph % (Auto) % [place] % (Auto) % Eos % (Auto) % Baso % (Auto) % Immature Gran # (Auto) (0.00-0.02) K/uL Neut # (Auto) (1.4-6.5) K/uL Lymph # (Auto) (1.2-3.4) K/uL [place] # (Auto) (0.11-0.59) K/uL Eos # (Auto) (0-0.5) K/uL Baso # (Auto) (0-0.2) K/uL Sodium (136-145) mmol/L Potassium (3.5-5.1) mmol/L Chloride (98-107) mmol/L Carbon Dioxide (21-32) mmol/L Anion Gap (3-11) BUN (7-18) mg/dl Creatinine (0.6-1.4) mg/dl Est Cr Clr Drug Dosing ml/min Est GFR ( Amer) Est GFR (Non-Af Amer) BUN/Creatinine Ratio (10-20) Glucose (70-99) mg/dl POC Glucose 78 221 H 156 H (70-99) Calcium (8.5-10.1) mg/dl Phosphorus (2.5-4.9) mg/dl Magnesium (1.8-2.4) mg/dl E.chaffeensis DNA (PCR) 04/16/19 04/16/19 04/16/19 Range/Units 06:42 06:42 06:42 WBC (4.8-10.8) K/uL RBC (4.7-6.1) M/uL Hgb (14.0-18.0) g/dL Hct (42-52) % MCV (80-100) fL MCH (25-34) pg MCHC (32-36) g/dL RDW Std Deviation (36.4-46.3) fL RDW Coeff of Genevieve (11.5-14.5) % Plt Count (130-400) K/uL MPV (7.4-10.4) fL Immature Gran % (Auto) % Neut % (Auto) % Lymph % (Auto) % [place] % (Auto) % Eos % (Auto) % Baso % (Auto) % Immature Gran # (Auto) (0.00-0.02) K/uL Neut # (Auto) (1.4-6.5) K/uL Lymph # (Auto) (1.2-3.4) K/uL [place] # (Auto) (0.11-0.59) K/uL Eos # (Auto) (0-0.5) K/uL Baso # (Auto) (0-0.2) K/uL Sodium 138 (136-145) mmol/L Potassium 3.1 L (3.5-5.1) mmol/L Chloride 108 H (98-107) mmol/L Carbon Dioxide 23 (21-32) mmol/L Anion Gap 7.0 (3-11) BUN 16 (7-18) mg/dl Creatinine 0.70 (0.6-1.4) mg/dl Est Cr Clr Drug Dosing 120.4 ml/min Est GFR ( Amer) 115.6 Est GFR (Non-Af Amer) 99.7 BUN/Creatinine Ratio 23.2 H (10-20) Glucose 140 H (70-99) mg/dl POC Glucose (70-99) Calcium 8.4 L (8.5-10.1) mg/dl Phosphorus 3.8 (2.5-4.9) mg/dl Magnesium 1.7 L (1.8-2.4) mg/dl E.chaffeensis DNA (PCR) Pending 04/16/19 Range/Units 06:42 WBC 3.56 L (4.8-10.8) K/uL RBC 4.31 L (4.7-6.1) M/uL Hgb 12.7 L (14.0-18.0) g/dL Hct 35.8 L (42-52) % MCV 83.1 (80-100) fL MCH 29.5 (25-34) pg MCHC 35.5 (32-36) g/dL RDW Std Deviation 46.4 H (36.4-46.3) fL RDW Coeff of Genevieve 15.2 H (11.5-14.5) % Plt Count 63 L (130-400) K/uL MPV 10.1 (7.4-10.4) fL Immature Gran % (Auto) 0.0 % Neut % (Auto) 25.9 % Lymph % (Auto) 52.5 % [place] % (Auto) 16.3 % Eos % (Auto) 3.1 % Baso % (Auto) 2.2 % Immature Gran # (Auto) 0.00 (0.00-0.02) K/uL Neut # (Auto) 0.92 L* (1.4-6.5) K/uL Lymph # (Auto) 1.87 (1.2-3.4) K/uL [place] # (Auto) 0.58 (0.11-0.59) K/uL Eos # (Auto) 0.11 (0-0.5) K/uL Baso # (Auto) 0.08 (0-0.2) K/uL Sodium (136-145) mmol/L Potassium (3.5-5.1) mmol/L Chloride (98-107) mmol/L Carbon Dioxide (21-32) mmol/L Anion Gap (3-11) BUN (7-18) mg/dl Creatinine (0.6-1.4) mg/dl Est Cr Clr Drug Dosing ml/min Est GFR ( Amer) Est GFR (Non-Af Amer) BUN/Creatinine Ratio (10-20) Glucose (70-99) mg/dl POC Glucose (70-99) Calcium (8.5-10.1) mg/dl Phosphorus (2.5-4.9) mg/dl Magnesium (1.8-2.4) mg/dl E.chaffeensis DNA (PCR)
[2019-04-17 07:16] LABS: Basophils # (auto) 0.04 K/uL (0-0.2); Eosinophils # (auto) 0.19 K/uL (0-0.5); Eosinophils % (auto) 4.6 %; Lymphocytes # (auto) 2.44 K/uL (1.2-3.4); Lymphocytes % (auto) 59.1 %; Monocytes # (auto) 0.49 K/uL (0.11-0.59); Monocytes % (auto) 11.9 %; Neutrophils # (auto) 0.97 K/uL (1.4-6.5); Neutrophils % (auto) 23.4 %; Smudge Cells Present
[2019-04-17] MEDS: AZILECT~ORDER AWAITING ACTION SCH ×3 (08:36→23:58)
[2019-04-17] MEDS: INSULIN GLARGINE SOLOSTAR 100 UNITS/ML 3 ML PEN SQ SCH ×2 (08:37→20:36)
[2019-04-17] MEDS: CARBIDOPA/LEVODOPA 25/100MG TAB PO SCH ×4 (08:37→20:32)
[2019-04-17] MEDS: CYANOCOBALAMIN (VITAMIN B-12) 100 MCG TABLET PO SCH (08:37)
[2019-04-17] MEDS: CHOLECALCIFEROL (VITAMIN D) 400 UNITS TABLET PO SCH (08:37)
[2019-04-17] MEDS: INSULIN ASPART 100 UNITS/ML 3 ML PEN SC SCH ×4 (08:38→20:35)
--- NOTE | 2019-04-17 09:06 | Pharmacy Report ---
Pharmacy Glycemic Short Note 2 - Date of Service April 17, 2019 - Glycemic Short BSG Results (Last 24 hours): 04/16/19 04/16/19 04/16/19 12:38 16:32 20:37 Glucose POC Glucose 221 H 78 156 H 04/17/19 04/17/19 05:20 07:39 Glucose 150 H POC Glucose 164 H OUTPATIENT ANTIDIABETIC REGIMEN: * Lantus 54 units SQ BID + Novolog TID with meals (22 units/12 units/26 units) * Farxiga 10 mg qAM + metformin (currently being held) * non-compliant with outpatient regimen * A1c = 13.3% (04/15/19) ASSESSMENT: 04/17: * Butch received 103 units of insulin yesterday with BSGs ranging fro 78 to 221 mg/dL * 65 units of basal * 38 units of bolus (pt was NPO during part of this time) * Fasting BSG of 164 mg/dL is slightly above goal but adequate based on A1c. Do not want to lower BSGs too rapidly with such an elevated A1. Will continue to titrate basal insulin. * Post prandial BSGs are mostly at goal with the exception of lunch. CHO ratio tightened yesterday. Will continued increased coverage. Elevated goal range to help prevent over-coverage when BSG below goal range. No changes today. 04/16: * Butch received 82 units of insulin yesterday with BSGs ranging fro 89 to 211 mg/dL * 60 units of basal * 22 units of bolus (pt was NPO during part of this time) * Fasting BSG of 156 mg/dL is slightly above goal. Will continue to titrate basal insulin. Yesterday patient received ~45% of outpatient basal dose. * Post prandial BSGs are mostly at goal with the exception of lunch. Will tighten carb coverage only. 04/15: * Mr. Pina is a 63 yr old male with h/o Parkinsons disease admitted for recurrent falls, fever, and suspicion for anaplasmosis infection. * Poorly controlled T2DM. Patient's family reports non-compliance with anti- diabetic regimen due to confusion and difficulty managing medications. * Fasting BSG of 125 mg/dL is at goal. Butch received a reduced dose of basal insulin yesterday; total of 84 units of Lantus (of note PM dose given late, ~0100). I further reduced this dose by ~25% for NPO status this morning. Patient was ordered a diet with lunch, therefore PM dose will be titrated upward. * Will utilize weight based Novolog CF/CR (stress of 2-3) rather than home doses due to non compliance. PLAN FOR INPATIENT GLYCEMIC CONTROL: * Hold outpatient oral diabetes medications * Basal insulin: continue ~ 65 units/day split BID * Lantus 32 units SQ BID * Bolus insulin: No change * NovoLog per scale ACHS or Q6hrs while NPO * Goal Range: Low 120 mg/dL - High 150 mg/dL * Correction Factor: 15 mg/dL/unit * Nutritional / Prandial insulin per carb ratio of 1 unit per 4 grams CHO consumed PLAN FOR DISCHARGE: * A1c = 13.3%. A1c elevation due mostly to medication non-compliance. Patient reports taking medications inconsistently over the past few months for various reasons including urinary incontinence with Farxiga. In the process of [facility] Endocrinologists. * Patient requested information on other medication options (CDE provided handouts on GLP-1 and DPP-4) * Goal A1c <8% based on comorbidities * Insulin recommendations pending additional BSG data
[2019-04-17] MEDS: DOXYCYCLINE HYCLATE 100 MG in DEXTROSE 5% 100 ML IV SCH ×2 (11:44→23:58)
[2019-04-17] MEDS: NSS + 20MEQ KCL 20 MEQ/1,000 ML BAG IV SCH ×2 (11:44→23:58)
[2019-04-17] MEDS: IRBESARTAN 150 MG TAB PO SCH (20:33)
[2019-04-17] MEDS: ASPIRIN 81 MG ECTAB PO SCH (20:33)
[2019-04-17] MEDS: LORATADINE 10 MG TAB PO SCH (20:34)
[2019-04-17] MEDS: FINASTERIDE 5 MG TAB PO SCH (20:34)
[2019-04-17] MEDS ORDERED: Nursing to Pharmacy Communication ONE (23:27)
[2019-04-18 06:17] LABS: Hematocrit (blood only) 35.9 % (42-52); Hemoglobin 12.5 g/dL (14.0-18.0); Mean Corpuscular Hemoglobin 29.5 pg (25-34); Mean Corpuscular Hgb Conc 34.8 g/dL (32-36); Mean Corpuscular Volume 84.7 fL (80-100); Mean Platelet Volume 9.8 fL (7.4-10.4); Platelet Count 143 K/uL (130-400); RDW Coefficient of Variation 15.1 % (11.5-14.5); RDW Standard Deviation 47.4 fL (36.4-46.3); Red Blood Count 4.24 M/uL (4.7-6.1); White Blood Count 4.49 K/uL (4.8-10.8)
[2019-04-18 06:53] LABS: BUN Creatinine Ratio 12.3 (10-20); Calcium 8.4 mg/dl (8.5-10.1); Creatinine Clr Calc Pharmacy 112.4 ml/min; Est GFR (African American) 112.2; Est GFR (Non-African American) 96.8; Magnesium 1.7 mg/dl (1.8-2.4); Potassium 3.3 mmol/L (3.5-5.1)
[2019-04-18 06:59] LABS: Basophils # (auto) 0.05 K/uL (0-0.2); Basophils % (auto) 1.1 %; Eosinophils # (auto) 0.19 K/uL (0-0.5); Eosinophils % (auto) 4.2 %; Immature Granulocytes # (auto) 0.01 K/uL (0.00-0.02); Immature Granulocytes % (auto) 0.2 %; Lymphocytes # (auto) 2.29 K/uL (1.2-3.4); Monocytes % (auto) 8.9 %; Neutrophils # (auto) 1.55 K/uL (1.4-6.5); Neutrophils % (auto) 34.6 %
[2019-04-18] MEDS ORDERED: POTASSIUM CHLORIDE 20 MEQ TABCR PO STA (07:54)
--- NOTE | 2019-04-18 08:02 | Hospitalist Progress Note ---
Date of Service April 18, 2019 Assessment & Plan (1) Recurrent falls: Butch Pina is a 63 y/o male with poorly controlled type 2 diabetes mellitus and Parkinson's disease who presented with ambulatory dysfunction, fall, and fever. Ambulatory dysfunction/weakness with fever and leukopenia (secondary to anaplasmosis/ tick borne disease) Gradually worsening ambulatory dysfunction over several months, but acutely worsened in the last week - today clinically much better, walking around the room w/ walker Anaplasma infection - confirmed by PCR hx of deer tick bites ye. in the last 2 weeks Neutropenic to 2.67, elevated AST to 45, febrile to 37.7 on admission, currently pt is pancytopenic - Lyme Ab negative Anaplasmosis smear - negative - Anaplasma PCR- positive - Ehrlichiosis PCR - pending Empiric anaplasmosis/ tick borne dis. treatment with doxycycline 100 mg IV twice daily started on admission, Given PCR confirmation of Anaplasma, plan for 14 day treatment course - switch to PO doxycycline plan for inpt rehab (2) DM type 2 (diabetes mellitus, type 2): - poorly controlled - HbA1c 13.3% (04/15) Per patient's family he rarely takes his medications due to his confusion in the last week, and overall difficulty managing medications Hold [employer] oral anti-glycemics pharmacy consulted for glycemic management Possible encephalopathy -Per family patient more confused in the past week -Possibly secondary to underlying etiology (anaplasma/ tick-borne inf.), in the setting of Parkinson's -Currently patient seems to be alert and oriented, however anxious and teary intermittently, will continue to monitor his mental status (3) Parkinson disease: Patient has a deep brain stimulator which is effective in helping control his tremors Continue [employer] Sinemet 2 tabs p.o. 4 times daily Continue [employer] Azilect 1 mg p.o. every morning Back pain/spasm status post spinal fusion - tylenol as needed oxycodone 5 mg p.o. every 4 hours as needed (4) Pancytopenia: Neutropenia -Improved, patient is still anemic and leukopenic, however no longer neutropenic or thrombocytopenic -secondary to underlying process (anaplasma and/or other poss.tickborne disease co-infection) -As above, patient has exposure to deer ticks -cont. treatment with doxycycline, he is clinically improving -We will continue to monitor CBC (5) Hypertension: -Currently well controlled Cont irbesartan 300 mg p.o. nightly Hypokalemia, Hypomagnesemia - replete and monitor - goal K>4, Mg>2 DVT prophylaxis: SCDs. CODE STATUS: Full code Subjective No acute events overnight. Patient is comfortable, sitting the chair, his is at the bedside. Patient denies any chest pain, shortness of breath, abdominal pain, nausea, vomiting. Patient's raised concern that the patient will be probably better off at [facility], we can discuss this with telephonic nurse case manager. Review of Systems Review of Systems: All systems reviewed & are unremarkable except as noted in HPI & below Constitutional: no fever and no chills Respiratory: no cough and no dyspnea Cardiovascular: no chest pain, no palpitations and no edema Gastrointestinal: no abdominal pain, no nausea and no vomiting Physical Exam Physical Exam: General: Elderly male sitting in the chair, in no acute distress. HEENT: Atraumatic, normocephalic. No facial asymmetry. PERRL, EOMI, Moist mucous membranes, posterior pharynx without erythema/exudate. Pulmonary: CTAB no wheezes, rales, or rhonchi. No increase work of breathing. No respiratory distress. Cardiac: RRR, no murmur, rub, gallop, but some ectopy. No LE edema, distal pulses 2+ Abdomen: Nontender, nondistended, soft, obese. normal bowel sounds Skin: No rashes or lesions, warm, dry Extremities: Moves all 4 extremities spontaneously, no LE edema noted Neuro/Psych: Alert and oriented x3, speech fluent, moves all 4 extremities spontaneously Results & Data Vital Signs (Past 12 Hours) Vital Signs Temp Pulse Resp BP Pulse Ox 04/18/19 07:31 36.4 C L 59 L 18 146/75 H 94 04/17/19 23:09 36.6 C 71 17 159/73 H 95 Laboratory Results 04/18/19 04/18/19 04/18/19 Range/Units 07:40 05:52 05:52 WBC 4.49 L (4.8-10.8) K/uL RBC 4.24 L (4.7-6.1) M/uL Hgb 12.5 L (14.0-18.0) g/dL Hct 35.9 L (42-52) % MCV 84.7 (80-100) fL MCH 29.5 (25-34) pg MCHC 34.8 (32-36) g/dL RDW Std Deviation 47.4 H (36.4-46.3) fL RDW Coeff of Genevieve 15.1 H (11.5-14.5) % Plt Count 143 (130-400) K/uL MPV 9.8 (7.4-10.4) fL Immature Gran % (Auto) 0.2 % Neut % (Auto) 34.6 % Lymph % (Auto) 51.0 % [place] % (Auto) 8.9 % Eos % (Auto) 4.2 % Baso % (Auto) 1.1 % Immature Gran # (Auto) 0.01 (0.00-0.02) K/uL Neut # (Auto) 1.55 (1.4-6.5) K/uL Lymph # (Auto) 2.29 (1.2-3.4) K/uL [place] # (Auto) 0.40 (0.11-0.59) K/uL Eos # (Auto) 0.19 (0-0.5) K/uL Baso # (Auto) 0.05 (0-0.2) K/uL Sodium 142 (136-145) mmol/L Potassium 3.3 L (3.5-5.1) mmol/L Chloride 110 H (98-107) mmol/L Carbon Dioxide 26 (21-32) mmol/L Anion Gap 7.0 (3-11) BUN 9 (7-18) mg/dl Creatinine 0.74 (0.6-1.4) mg/dl Est Cr Clr Drug Dosing 112.4 ml/min Est GFR ( Amer) 112.2 Est GFR (Non-Af Amer) 96.8 BUN/Creatinine Ratio 12.3 (10-20) Glucose 142 H (70-99) mg/dl POC Glucose 135 H (70-99) Calcium 8.4 L (8.5-10.1) mg/dl Magnesium 1.7 L (1.8-2.4) mg/dl A. phagocytophilum DNA (Not Detected) 04/17/19 04/17/19 04/17/19 Range/Units 20:23 16:40 11:33 WBC (4.8-10.8) K/uL RBC (4.7-6.1) M/uL Hgb (14.0-18.0) g/dL Hct (42-52) % MCV (80-100) fL MCH (25-34) pg MCHC (32-36) g/dL RDW Std Deviation (36.4-46.3) fL RDW Coeff of Genevieve (11.5-14.5) % Plt Count (130-400) K/uL MPV (7.4-10.4) fL Immature Gran % (Auto) % Neut % (Auto) % Lymph % (Auto) % [place] % (Auto) % Eos % (Auto) % Baso % (Auto) % Immature Gran # (Auto) (0.00-0.02) K/uL Neut # (Auto) (1.4-6.5) K/uL Lymph # (Auto) (1.2-3.4) K/uL [place] # (Auto) (0.11-0.59) K/uL Eos # (Auto) (0-0.5) K/uL Baso # (Auto) (0-0.2) K/uL Sodium (136-145) mmol/L Potassium (3.5-5.1) mmol/L Chloride (98-107) mmol/L Carbon Dioxide (21-32) mmol/L Anion Gap (3-11) BUN (7-18) mg/dl Creatinine (0.6-1.4) mg/dl Est Cr Clr Drug Dosing ml/min Est GFR ( Amer) Est GFR (Non-Af Amer) BUN/Creatinine Ratio (10-20) Glucose (70-99) mg/dl POC Glucose 189 H 147 H 181 H (70-99) Calcium (8.5-10.1) mg/dl Magnesium (1.8-2.4) mg/dl A. phagocytophilum DNA (Not Detected) 04/17/19 04/15/19 Range/Units 07:39 06:44 WBC (4.8-10.8) K/uL RBC (4.7-6.1) M/uL Hgb (14.0-18.0) g/dL Hct (42-52) % MCV (80-100) fL MCH (25-34) pg MCHC (32-36) g/dL RDW Std Deviation (36.4-46.3) fL RDW Coeff of Genevieve (11.5-14.5) % Plt Count (130-400) K/uL MPV (7.4-10.4) fL Immature Gran % (Auto) % Neut % (Auto) % Lymph % (Auto) % [place] % (Auto) % Eos % (Auto) % Baso % (Auto) % Immature Gran # (Auto) (0.00-0.02) K/uL Neut # (Auto) (1.4-6.5) K/uL Lymph # (Auto) (1.2-3.4) K/uL [place] # (Auto) (0.11-0.59) K/uL Eos # (Auto) (0-0.5) K/uL Baso # (Auto) (0-0.2) K/uL Sodium (136-145) mmol/L Potassium (3.5-5.1) mmol/L Chloride (98-107) mmol/L Carbon Dioxide (21-32) mmol/L Anion Gap (3-11) BUN (7-18) mg/dl Creatinine (0.6-1.4) mg/dl Est Cr Clr Drug Dosing ml/min Est GFR ( Amer) Est GFR (Non-Af Amer) BUN/Creatinine Ratio (10-20) Glucose (70-99) mg/dl POC Glucose 164 H (70-99) Calcium (8.5-10.1) mg/dl Magnesium (1.8-2.4) mg/dl A. phagocytophilum DNA Detected A (Not Detected)
[2019-04-18] MEDS: CHOLECALCIFEROL (VITAMIN D) 400 UNITS TABLET PO SCH (08:12)
[2019-04-18] MEDS: CARBIDOPA/LEVODOPA 25/100MG TAB PO SCH ×4 (08:12→20:55)
[2019-04-18] MEDS: AZILECT~ORDER AWAITING ACTION SCH ×3 (08:12→23:56)
[2019-04-18] MEDS: CYANOCOBALAMIN (VITAMIN B-12) 100 MCG TABLET PO SCH (08:12)
[2019-04-18] MEDS ORDERED: MAGNESIUM SULFATE / D5W 1 GM/100 ML BAG IV ONE (08:15)
[2019-04-18] MEDS: INSULIN GLARGINE SOLOSTAR 100 UNITS/ML 3 ML PEN SQ SCH ×2 (08:31→20:52)
[2019-04-18] MEDS: INSULIN ASPART 100 UNITS/ML 3 ML PEN SC SCH ×4 (08:32→20:53)
--- NOTE | 2019-04-18 10:22 | Pharmacy Report ---
Pharmacy Glycemic Short Note 2 - Date of Service April 18, 2019 - Glycemic Short BSG Results (Last 24 hours): 04/17/19 04/17/19 04/17/19 11:33 16:40 20:23 Glucose POC Glucose 181 H 147 H 189 H 04/18/19 04/18/19 05:52 07:40 Glucose 142 H POC Glucose 135 H OUTPATIENT ANTIDIABETIC REGIMEN: * Lantus 54 units SQ BID + Novolog TID with meals (22 units/12 units/26 units) * Farxiga 10 mg qAM + metformin (currently being held) * non-compliant with outpatient regimen * A1c = 13.3% (04/15/19) ASSESSMENT: * Pt has been receiving an average of ~ 105 units of insulin per day. This is significantly less than ordered outpatient dosing. * 64 units of basal * 44 units of bolus * BSGs ranging 135 - 189 mg/dl * Fasting BSG of 135 mg/dL is s in goal range for inpatient targets. Do not want to lower BSGs too rapidly with such an elevated A1. * Post prandial BSGs are mostly at goal with the exception of lunch. Elevated low end of goal range to help prevent over-coverage when BSG below goal range. Will lower high end of goal range for improved post-prandial control PLAN FOR INPATIENT GLYCEMIC CONTROL: * Hold outpatient oral diabetes medications * Basal insulin: continue ~ 65 units/day split BID * Lantus 32 units SQ BID * Bolus insulin: lower "high" end of goal range * NovoLog per scale ACHS or Q6hrs while NPO * Goal Range: Low 120 mg/dL - High 140 mg/dL * Correction Factor: 15 mg/dL/unit * Nutritional / Prandial insulin per carb ratio of 1 unit per 4 grams CHO consumed PLAN FOR DISCHARGE: * A1c = 13.3%. A1c elevation due mostly to medication non-compliance. Patient reports taking medications inconsistently over the past few months for various reasons including urinary incontinence with Farxiga. In the process of switching Endocrinologists. * Patient requested information on other medication options (CDE provided handouts on GLP-1 and DPP-4) * Goal A1c <8% based on comorbidities * Insulin recommendations: * Lantus 32 units SQ BID * Novolog TID with meals (20 units Breakfast/15 units lunch/10units dinner)
[2019-04-18] MEDS: NSS + 20MEQ KCL 20 MEQ/1,000 ML BAG IV SCH (12:32)
[2019-04-18] MEDS: DOXYCYCLINE HYCLATE 100 MG CAP PO SCH ×2 (13:54→20:54)
[2019-04-18] MEDS: ASPIRIN 81 MG ECTAB PO SCH (20:51)
[2019-04-18] MEDS: IRBESARTAN 150 MG TAB PO SCH (20:52)
[2019-04-18] MEDS: LORATADINE 10 MG TAB PO SCH (20:52)
[2019-04-18] MEDS: FINASTERIDE 5 MG TAB PO SCH (20:54)
[2019-04-19 06:04] LABS: Basophils # (auto) 0.06 K/uL (0-0.2); Eosinophils # (auto) 0.23 K/uL (0-0.5); Eosinophils % (auto) 3.7 %; Hematocrit (blood only) 38.6 % (42-52); Hemoglobin 13.2 g/dL (14.0-18.0); Immature Granulocytes # (auto) 0.02 K/uL (0.00-0.02); Immature Granulocytes % (auto) 0.3 %; Lymphocytes % (auto) 43.5 %; Mean Corpuscular Hemoglobin 29.2 pg (25-34); Mean Corpuscular Hgb Conc 34.2 g/dL (32-36); Mean Corpuscular Volume 85.4 fL (80-100); Mean Platelet Volume 9.5 fL (7.4-10.4); Monocytes % (auto) 9.7 %; Neutrophils # (auto) 2.59 K/uL (1.4-6.5); Neutrophils % (auto) 41.8 %; Platelet Count 205 K/uL (130-400); RDW Coefficient of Variation 15.1 % (11.5-14.5); RDW Standard Deviation 47.3 fL (36.4-46.3); Red Blood Count 4.52 M/uL (4.7-6.1)
[2019-04-19 06:34] LABS: BUN Creatinine Ratio 12.8 (10-20); Calcium 8.8 mg/dl (8.5-10.1); Creatinine Clr Calc Pharmacy 91.4 ml/min; Est GFR (African American) 102.1; Est GFR (Non-African American) 88.1; Potassium 3.8 mmol/L (3.5-5.1)
--- NOTE | 2019-04-19 07:45 | Hospitalist Progress Note ---
Date of Service April 19, 2019 Assessment & Plan (1) Recurrent falls: Butch Pina is a 63 y/o male with poorly controlled type 2 diabetes mellitus and Parkinson's disease who presented with ambulatory dysfunction, fall, and fever. Ambulatory dysfunction/weakness with fever and leukopenia (secondary to anaplasmosis/ tick borne disease) Gradually worsening ambulatory dysfunction over several months, but acutely worsened in the last week - today clinically much better, walking around the room w/ walker Anaplasma infection - confirmed by PCR hx of deer tick bites ye. in the last 2 weeks Neutropenic to 2.67, elevated AST to 45, febrile to 37.7 on admission, currently pt is pancytopenic - Lyme Ab negative Anaplasmosis smear - negative - Anaplasma PCR- positive - Ehrlichiosis PCR - pending Empiric anaplasmosis/ tick borne dis. treatment with doxycycline 100 mg IV twice daily started on admission (04/14/2019), Given PCR confirmation of Anaplasma, plan for 14 day treatment course - cont. 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 pharmacy consulted for glycemic management - Insulin recommendations for discharge : Lantus 32 units SQ BID Novolog TID with meals (20 units Breakfast/15 units lunch/10units dinner) Possible encephalopathy -Per family patient more confused in the past week -Possibly secondary to underlying etiology (anaplasma/ tick-borne inf.), in the setting of Parkinson's -Currently patient seems to be alert and oriented, however anxious and teary intermittently, will continue to monitor his mental status (3) Parkinson disease: Patient has a deep brain stimulator which is effective in helping control his tremors Continue MANAGER OF HUMAN RESOURCES Sinemet 2 tabs p.o. 4 times daily Continue MANAGER OF HUMAN RESOURCES Azilect 1 mg p.o. every morning Back pain/spasm status post spinal fusion - tylenol as needed oxycodone 5 mg p.o. every 4 hours as needed (4) Pancytopenia: Neutropenia - resolved -Improved, patient is still mildly anemic but no longer leukopenic,(neutropenic)or thrombocytopenic -secondary to underlying process (anaplasma and/or other poss.tickborne disease co-infection) -As above, patient has exposure to deer ticks -cont. treatment with doxycycline, he is clinically improving -We will continue to monitor CBC (5) Hypertension: -Currently well controlled Cont irbesartan 300 mg p.o. nightly Hypokalemia, Hypomagnesemia - replete and monitor - goal K>4, Mg>2 DVT prophylaxis: SCDs. CODE STATUS: Full code Subjective No acute events overnight. Patient is comfortable, sitting the chair. Patient denies any chest pain, shortness of breath, abdominal pain, nausea, vomiting. Review of Systems Review of Systems: All systems reviewed & are unremarkable except as noted in HPI & below Respiratory: no cough, no dyspnea, no hemoptysis and no pain on inspiration Cardiovascular: no chest pain, no radiating jaw, neck or arm pain, no dyspnea on exertion, no palpitations and no edema Gastrointestinal: no abdominal pain, no nausea and no vomiting Physical Exam Physical Exam: General: Elderly male sitting in the chair, in no acute distress. HEENT: Atraumatic, normocephalic. No facial asymmetry. PERRL, EOMI, Moist mucous membranes, posterior pharynx without erythema/exudate. Pulmonary: CTAB no wheezes, rales, or rhonchi. No increase work of breathing. No respiratory distress. Cardiac: RRR, no murmur, rub, gallop, but some ectopy. No LE edema, distal pulses 2+ Abdomen: Nontender, nondistended, soft, obese. normal bowel sounds Skin: No rashes or lesions, warm, dry Extremities: Moves all 4 extremities spontaneously, no LE edema noted Neuro/Psych: Alert and oriented x3, speech fluent, moves all 4 extremities spontaneously Results & Data Vital Signs (Past 12 Hours) Vital Signs Temp Pulse Resp BP Pulse Ox 04/19/19 06:55 36.6 C 71 18 145/69 H 95 04/18/19 23:01 36.6 C 67 18 150/62 H 95 Laboratory Results 04/19/19 04/19/19 04/18/19 Range/Units 05:45 05:45 20:00 WBC 6.20 (4.8-10.8) K/uL RBC 4.52 L (4.7-6.1) M/uL Hgb 13.2 L (14.0-18.0) g/dL Hct 38.6 L (42-52) % MCV 85.4 (80-100) fL MCH 29.2 (25-34) pg MCHC 34.2 (32-36) g/dL RDW Std Deviation 47.3 H (36.4-46.3) fL RDW Coeff of Genevieve 15.1 H (11.5-14.5) % Plt Count 205 (130-400) K/uL MPV 9.5 (7.4-10.4) fL Immature Gran % (Auto) 0.3 % Neut % (Auto) 41.8 % Lymph % (Auto) 43.5 % [place] % (Auto) 9.7 % Eos % (Auto) 3.7 % Baso % (Auto) 1.0 % Immature Gran # (Auto) 0.02 (0.00-0.02) K/uL Neut # (Auto) 2.59 (1.4-6.5) K/uL Lymph # (Auto) 2.70 (1.2-3.4) K/uL [place] # (Auto) 0.60 H (0.11-0.59) K/uL Eos # (Auto) 0.23 (0-0.5) K/uL Baso # (Auto) 0.06 (0-0.2) K/uL Sodium 140 (136-145) mmol/L Potassium 3.8 D (3.5-5.1) mmol/L Chloride 108 H (98-107) mmol/L Carbon Dioxide 27 (21-32) mmol/L Anion Gap 6.0 (3-11) BUN 12 (7-18) mg/dl Creatinine 0.91 (0.6-1.4) mg/dl Est Cr Clr Drug Dosing 91.4 ml/min Est GFR ( Amer) 102.1 Est GFR (Non-Af Amer) 88.1 BUN/Creatinine Ratio 12.8 (10-20) Glucose 141 H (70-99) mg/dl POC Glucose 130 H (70-99) Calcium 8.8 (8.5-10.1) mg/dl 04/18/19 04/18/19 04/18/19 Range/Units 17:24 11:55 07:40 WBC (4.8-10.8) K/uL RBC (4.7-6.1) M/uL Hgb (14.0-18.0) g/dL Hct (42-52) % MCV (80-100) fL MCH (25-34) pg MCHC (32-36) g/dL RDW Std Deviation (36.4-46.3) fL RDW Coeff of Genevieve (11.5-14.5) % Plt Count (130-400) K/uL MPV (7.4-10.4) fL Immature Gran % (Auto) % Neut % (Auto) % Lymph % (Auto) % [place] % (Auto) % Eos % (Auto) % Baso % (Auto) % Immature Gran # (Auto) (0.00-0.02) K/uL Neut # (Auto) (1.4-6.5) K/uL Lymph # (Auto) (1.2-3.4) K/uL [place] # (Auto) (0.11-0.59) K/uL Eos # (Auto) (0-0.5) K/uL Baso # (Auto) (0-0.2) K/uL Sodium (136-145) mmol/L Potassium (3.5-5.1) mmol/L Chloride (98-107) mmol/L Carbon Dioxide (21-32) mmol/L Anion Gap (3-11) BUN (7-18) mg/dl Creatinine (0.6-1.4) mg/dl Est Cr Clr Drug Dosing ml/min Est GFR ( Amer) Est GFR (Non-Af Amer) BUN/Creatinine Ratio (10-20) Glucose (70-99) mg/dl POC Glucose 216 H 121 H 135 H (70-99) Calcium (8.5-10.1) mg/dl
[2019-04-19] MEDS: INSULIN GLARGINE SOLOSTAR 100 UNITS/ML 3 ML PEN SQ SCH ×2 (08:19→21:40)
[2019-04-19] MEDS: AZILECT~ORDER AWAITING ACTION SCH ×2 (08:20→15:32)
[2019-04-19] MEDS: INSULIN ASPART 100 UNITS/ML 3 ML PEN SC SCH ×4 (08:20→21:41)
[2019-04-19] MEDS: CARBIDOPA/LEVODOPA 25/100MG TAB PO SCH ×4 (08:21→21:43)
[2019-04-19] MEDS: CYANOCOBALAMIN (VITAMIN B-12) 100 MCG TABLET PO SCH (08:21)
[2019-04-19] MEDS: CHOLECALCIFEROL (VITAMIN D) 400 UNITS TABLET PO SCH (08:21)
[2019-04-19] MEDS: DOXYCYCLINE HYCLATE 100 MG CAP PO SCH ×2 (08:21→21:40)
[2019-04-19] MEDS: LORATADINE 10 MG TAB PO SCH (21:40)
[2019-04-19] MEDS: ASPIRIN 81 MG ECTAB PO SCH (21:40)
[2019-04-19] MEDS: IRBESARTAN 150 MG TAB PO SCH (21:40)
[2019-04-19] MEDS: FINASTERIDE 5 MG TAB PO SCH (21:40)
[2019-04-20 07:42] LABS: Basophils # (auto) 0.06 K/uL (0-0.2); Basophils % (auto) 1.1 %; Eosinophils # (auto) 0.16 K/uL (0-0.5); Eosinophils % (auto) 2.8 %; Hematocrit (blood only) 40.2 % (42-52); Hemoglobin 13.8 g/dL (14.0-18.0); Immature Granulocytes # (auto) 0.03 K/uL (0.00-0.02); Immature Granulocytes % (auto) 0.5 %; Lymphocytes # (auto) 2.23 K/uL (1.2-3.4); Lymphocytes % (auto) 39.5 %; Mean Corpuscular Hemoglobin 29.5 pg (25-34); Mean Corpuscular Hgb Conc 34.3 g/dL (32-36); Mean Corpuscular Volume 85.9 fL (80-100); Mean Platelet Volume 9.8 fL (7.4-10.4); Monocytes # (auto) 0.55 K/uL (0.11-0.59); Monocytes % (auto) 9.8 %; Neutrophils # (auto) 2.61 K/uL (1.4-6.5); Neutrophils % (auto) 46.3 %; Platelet Count 263 K/uL (130-400); RDW Coefficient of Variation 15.1 % (11.5-14.5); RDW Standard Deviation 47.5 fL (36.4-46.3); Red Blood Count 4.68 M/uL (4.7-6.1); White Blood Count 5.64 K/uL (4.8-10.8)
[2019-04-20 08:17] LABS: BUN Creatinine Ratio 15.2 (10-20); Calcium 8.8 mg/dl (8.5-10.1); Creatinine Clr Calc Pharmacy 102.7 ml/min; Est GFR (African American) 108.1; Est GFR (Non-African American) 93.3; Potassium 3.9 mmol/L (3.5-5.1)
[2019-04-20] MEDS: AZILECT~ORDER AWAITING ACTION SCH ×4 (08:46→23:35)
[2019-04-20] MEDS: CARBIDOPA/LEVODOPA 25/100MG TAB PO SCH ×4 (08:47→20:45)
[2019-04-20] MEDS: CYANOCOBALAMIN (VITAMIN B-12) 100 MCG TABLET PO SCH (08:47)
[2019-04-20] MEDS: CHOLECALCIFEROL (VITAMIN D) 400 UNITS TABLET PO SCH (08:48)
[2019-04-20] MEDS: DOXYCYCLINE HYCLATE 100 MG CAP PO SCH ×2 (08:48→20:54)
[2019-04-20] MEDS: INSULIN GLARGINE SOLOSTAR 100 UNITS/ML 3 ML PEN SQ SCH ×2 (08:50→20:49)
[2019-04-20] MEDS: INSULIN ASPART 100 UNITS/ML 3 ML PEN SC SCH ×4 (08:51→20:49)
--- NOTE | 2019-04-20 11:04 | Hospitalist Progress Note ---
Date of Service April 20, 2019 Assessment & Plan (1) Recurrent falls: Butch Pina is a 63 y/o male with poorly controlled type 2 diabetes mellitus and Parkinson's disease who presented with ambulatory dysfunction, fall, and fever. Ambulatory dysfunction/weakness with fever and leukopenia (secondary to anaplasmosis/ tick borne disease) Gradually worsening ambulatory dysfunction over several months, but acutely worsened in the last week (prior to admission) - clinically much improved, walking around the room w/ a walker Anaplasma infection - confirmed by PCR hx of deer tick bites ye. in the last 2 weeks Leukopenic w/ WBC 2.67, elevated AST to 45, febrile to 37.7 C on admission, pt then developed pancytopenia, which has resolved w/ treatment - Lyme Ab negative Anaplasmosis smear - negative - Anaplasma PCR- positive - Ehrlichiosis PCR - pending Empiric anaplasmosis/ tick borne dis. treatment with doxycycline 100 mg IV twice daily started on admission (04/14/2019), Given PCR confirmation of Anaplasma, plan for 14 day treatment course (end date 04/27/2019) - cont. 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 pharmacy consulted for glycemic management - Insulin recommendations for discharge : Lantus 32 units SQ BID Novolog TID with meals (20 units Breakfast/15 units lunch/10units dinner) Possible encephalopathy -Per family patient more confused in the past week (prior to admission) -Possibly secondary to underlying etiology (anaplasma/ tick-borne inf.), in the setting of Parkinson's -Currently patient seems to be alert and oriented, however anxious and teary intermittently, will continue to monitor his mental status (3) Parkinson disease: Patient has a deep brain stimulator which is effective in helping control his tremors Continue CHOCOLATE FINISHER OPERATOR Sinemet 2 tabs p.o. 4 times daily Continue CHOCOLATE FINISHER OPERATOR Azilect 1 mg p.o. every morning Back pain/spasm status post spinal fusion - tylenol as needed (4) Pancytopenia: Neutropenia - resolved -Improved, patient is still mildly anemic but no longer leukopenic,(neutropenic)or thrombocytopenic -secondary to underlying process (anaplasma and/or other poss.tickborne disease co-infection) -As above, patient has exposure to deer ticks -cont. treatment with doxycycline, he is clinically improving -We will continue to monitor CBC (5) Hypertension: -Currently well controlled Cont irbesartan 300 mg p.o. nightly Hypokalemia, Hypomagnesemia - replete and monitor - goal K>4, Mg>2 DVT prophylaxis: SCDs. CODE STATUS: Full code Subjective No acute events overnight. Patient is feeling well, has been working with physical therapy and says that he feels stronger. Denies any fevers, chills, chest pain, shortness of breath, abdominal pain, nausea or vomiting. Review of Systems Review of Systems: All systems reviewed & are unremarkable except as noted in HPI & below Constitutional: no fever, no chills, no fatigue and no weakness Respiratory: no cough and no dyspnea Cardiovascular: no chest pain, no dyspnea on exertion, no palpitations and no edema Gastrointestinal: no abdominal pain and no vomiting Physical Exam Physical Exam: General: Elderly male sitting in the chair, in no acute distress. HEENT: Atraumatic, normocephalic. No facial asymmetry. PERRL, EOMI, Moist mucous membranes, posterior pharynx without erythema/exudate. Pulmonary: CTAB no wheezes, rales, or rhonchi. No increase work of breathing. No respiratory distress. Cardiac: RRR, no murmur, rub, gallop, but some ectopy. No LE edema, distal pulses 2+ Abdomen: Nontender, nondistended, soft, obese. normal bowel sounds Skin: No rashes or lesions, warm, dry Extremities: Moves all 4 extremities spontaneously, no LE edema noted Neuro/Psych: Alert and oriented x3, speech fluent, moves all 4 extremities spontaneously Results & Data Vital Signs (Past 12 Hours) Vital Signs Temp Pulse Resp BP Pulse Ox 04/20/19 07:30 36.7 C 71 18 120/72 92 04/19/19 23:55 36.3 C L 73 20 121/71 95 Laboratory Results 04/20/19 04/20/19 04/20/19 Range/Units 07:42 06:57 06:57 WBC 5.64 (4.8-10.8) K/uL RBC 4.68 L (4.7-6.1) M/uL Hgb 13.8 L (14.0-18.0) g/dL Hct 40.2 L (42-52) % MCV 85.9 (80-100) fL MCH 29.5 (25-34) pg MCHC 34.3 (32-36) g/dL RDW Std Deviation 47.5 H (36.4-46.3) fL RDW Coeff of Genevieve 15.1 H (11.5-14.5) % Plt Count 263 (130-400) K/uL MPV 9.8 (7.4-10.4) fL Immature Gran % (Auto) 0.5 % Neut % (Auto) 46.3 % Lymph % (Auto) 39.5 % [place] % (Auto) 9.8 % Eos % (Auto) 2.8 % Baso % (Auto) 1.1 % Immature Gran # (Auto) 0.03 H (0.00-0.02) K/uL Neut # (Auto) 2.61 (1.4-6.5) K/uL Lymph # (Auto) 2.23 (1.2-3.4) K/uL [place] # (Auto) 0.55 (0.11-0.59) K/uL Eos # (Auto) 0.16 (0-0.5) K/uL Baso # (Auto) 0.06 (0-0.2) K/uL Sodium 138 (136-145) mmol/L Potassium 3.9 (3.5-5.1) mmol/L Chloride 106 (98-107) mmol/L Carbon Dioxide 25 (21-32) mmol/L Anion Gap 7.0 (3-11) BUN 12 (7-18) mg/dl Creatinine 0.81 (0.6-1.4) mg/dl Est Cr Clr Drug Dosing 102.7 ml/min Est GFR ( Amer) 108.1 Est GFR (Non-Af Amer) 93.3 BUN/Creatinine Ratio 15.2 (10-20) Glucose 173 H (70-99) mg/dl POC Glucose 205 H (70-99) Calcium 8.8 (8.5-10.1) mg/dl 04/19/19 04/19/1904/19/19 Range/Units 19:52 17:12 11:40 WBC (4.8-10.8) K/uL RBC (4.7-6.1) M/uL Hgb (14.0-18.0) g/dL Hct (42-52) % MCV (80-100) fL MCH (25-34) pg MCHC (32-36) g/dL RDW Std Deviation (36.4-46.3) fL RDW Coeff of Genevieve (11.5-14.5) % Plt Count (130-400) K/uL MPV (7.4-10.4) fL Immature Gran % (Auto) % Neut % (Auto) % Lymph % (Auto) % [place] % (Auto) % Eos % (Auto) % Baso % (Auto) % Immature Gran # (Auto) (0.00-0.02) K/uL Neut # (Auto) (1.4-6.5) K/uL Lymph # (Auto) (1.2-3.4) K/uL [place] # (Auto) (0.11-0.59) K/uL Eos # (Auto) (0-0.5) K/uL Baso # (Auto) (0-0.2) K/uL Sodium (136-145) mmol/L Potassium (3.5-5.1) mmol/L Chloride (98-107) mmol/L Carbon Dioxide (21-32) mmol/L Anion Gap (3-11) BUN (7-18) mg/dl Creatinine (0.6-1.4) mg/dl Est Cr Clr Drug Dosing ml/min Est GFR ( Amer) Est GFR (Non-Af Amer) BUN/Creatinine Ratio (10-20) Glucose (70-99) mg/dl POC Glucose 222 H 136 H 138 H (70-99) Calcium (8.5-10.1) mg/dl Medications Administered Current Inpatient Medications Acetaminophen (Tylenol) 650 mg PO Q4H PRN PRN Reason: pain/fever Stop: 05/14/19 23:30 Aspirin (Ecotrin Ectab) 81 mg PO HS ZOHRA Stop: 05/15/19 20:59 Last Admin: 04/19/19 21:40 Dose: 81 mg Documented by: Carbidopa/Levodopa (Sinemet 25/100 Mg) 2 tab PO QID [facility] Stop: 05/15/19 08:59 Last Admin: 04/20/19 08:47 Dose: 2 tab Documented by: Cyanocobalamin (Vitamin B-12) 100 mcg PO QAM [facility] Stop: 05/15/19 08:59 Last Admin: 04/20/19 08:47 Dose: 100 mcg Documented by: Dextrose (Dextrose 50%) 25 - 50 ml IV UD PRN; Protocol PRN Reason: Hypoglycemia Protocol Stop: 05/14/19 23:30 Doxycycline Hyclate (Vibramycin) 100 mg PO BID [facility] Stop: 05/02/19 13:59 Last Admin: 04/20/19 08:48 Dose: 100 mg Documented by: Finasteride (Proscar) 5 mg PO HS [facility] Stop: 05/15/19 20:59 Last Admin: 04/19/19 21:40 Dose: 5 mg Documented by: Glucagon (Glucagen) 1 mg SQ UD PRN; Protocol PRN Reason: Hypoglycemia Protocol Stop: 05/14/19 23:30 Glucose (Dex4 Glucose) 4 - 8 tabs PO UD PRN; Protocol PRN Reason: Hypoglycemia Protocol Stop: 05/14/19 23:30 Glucose (Glucose 40%) 15 - 30 gm PO UD PRN; Protocol PRN Reason: Hypoglycemia Protocol Stop: 05/14/19 23:30 Insulin Aspart (Novolog Flexpen) 0 units SC ACHS [facility] Stop: 05/15/19 00:00 Last Admin: 04/20/19 08:51 Dose: 23 units Documented by: Insulin Glargine (Lantus Solostar Pen) 32 units SQ BID [facility]; Protocol Stop: 05/17/19 08:59 Last Admin: 04/20/19 08:50 Dose: 32 units Documented by: Irbesartan (Avapro) 300 mg PO HS [facility] Stop: 05/15/19 20:59 Last Admin: 04/19/19 21:40 Dose: 300 mg Documented by: Loratadine (Claritin) 10 mg PO HS [facility] Stop: 05/15/19 20:59 Last Admin: 04/19/19 21:40 Dose: 10 mg Documented by: Miscellaneous (Carbohydrates For Hypoglycemia) 15 - 30 gm PO UD PRN PRN Reason: Hypoglycemia Protocol Stop: 05/14/19 23:30 Miscellaneous (Order Awaiting Action) 1 ea N/A QS ZOHRA Stop: 05/15/19 00:00 Last Admin: 04/20/19 08:47 Dose: Not Given Documented by: Miscellaneous Information (Consult Glycemic Management Pharmacy) 1 ea N/A UD PRN; Protocol PRN Reason: Consult Stop: 05/14/19 23:49 Oxycodone HCl (Roxicodone Immediate Rel) 5 mg PO Q4H PRN PRN Reason: Pain Stop: 04/28/19 23:45 Vitamin D (Vitamin [facility]3) [facility] [place] [place] Stop: 05/15/19 08:59 Last Admin: 04/20/19 08:48 Dose: 400 units Documented by:
--- NOTE | 2019-04-20 12:45 | Pharmacy Report ---
Pharmacy Glycemic Short Note 2 - Date of Service April 20, 2019 - Glycemic Short BSG Results (Last 24 hours): 04/19/19 04/19/19 04/20/19 17:12 19:52 06:57 Glucose 173 H POC Glucose 136 H 222 H 04/20/19 07:42 Glucose POC Glucose 205 H OUTPATIENT ANTIDIABETIC REGIMEN: * Lantus 54 units SQ BID + Novolog TID with meals (22 units/12 units/26 units) * Farxiga 10 mg qAM + metformin (currently being held) * non-compliant with outpatient regimen * A1c = 13.3% (04/15/19) ASSESSMENT: * Pt has been receiving an average of ~ 101 units of insulin per day. This is significantly less than ordered outpatient dosing. * 64 units of basal * 37 units of bolus * BSGs ranging 136-222 mg/dl * Fasting BSG of 205 mg/dL is above goal. Patient has been receiving 64-65 units of Lantus per day for the past 4 days with fasting BSGs mostly at goal (164, 135, 145 mg/dL). The cause of today's elevated fasting BSG is unknown. I am hesitant to increase Lantus for a single elevation. Will continue ordered dose of 32 units BID today and reassess tomorrow am. * Post prandial BSGs are mostly at goal. I will slightly tighten carb coverage. PLAN FOR INPATIENT GLYCEMIC CONTROL: * Hold outpatient oral diabetes medications * Basal insulin: * Lantus 32 units SQ BID * Bolus insulin: * NovoLog per scale ACHS or Q6hrs while NPO * Goal Range: Low 120 mg/dL - High 140 mg/dL * Correction Factor: 15 mg/dL/unit * Tighten Nutritional / Prandial insulin per carb ratio of 1 unit per 3.5 grams CHO consumed PLAN FOR DISCHARGE: * A1c = 13.3%. A1c elevation due mostly to medication non-compliance. Patient reports taking medications inconsistently over the past few months for various reasons including urinary incontinence with Farxiga. In the process of switching Endocrinologists. * Patient requested information on other medication options (CDE provided handouts on GLP-1 and DPP-4) * Goal A1c <8% based on comorbidities * Insulin recommendations: * Lantus 32 units SQ BID * Novolog TID with meals (20 units Breakfast/15 units lunch/10units dinner)
[2019-04-20] MEDS: ASPIRIN 81 MG ECTAB PO SCH (20:45)
[2019-04-20] MEDS: FINASTERIDE 5 MG TAB PO SCH (20:45)
[2019-04-20] MEDS: LORATADINE 10 MG TAB PO SCH (20:46)
[2019-04-20] MEDS: IRBESARTAN 150 MG TAB PO SCH (20:51)
[2019-04-21] MEDS: INSULIN ASPART 100 UNITS/ML 3 ML PEN SC SCH ×2 (08:54→12:35)
[2019-04-21] MEDS: AZILECT~ORDER AWAITING ACTION SCH (08:55)
[2019-04-21] MEDS ORDERED: INSULIN GLARGINE SOLOSTAR 100 UNITS/ML 3 ML PEN SQ SCH ×2 (09:00)
[2019-04-21] MEDS: CARBIDOPA/LEVODOPA 25/100MG TAB PO SCH ×2 (09:00→12:38)
[2019-04-21] MEDS: DOXYCYCLINE HYCLATE 100 MG CAP PO SCH (09:01)
[2019-04-21] MEDS: CYANOCOBALAMIN (VITAMIN B-12) 100 MCG TABLET PO SCH (09:02)
[2019-04-21] MEDS: CHOLECALCIFEROL (VITAMIN D) 400 UNITS TABLET PO SCH (09:02)
[2019-04-21 10:30] LABS: Ehrlichia chaff DNA Bld Not Detected (Not Detected)
--- NOTE | 2019-04-21 13:47 | Discharge Summary ---
Date of Service April 21, 2019 Admission HPI Per Admitting Provider Butch is a 63-year-old male with a past medical history of Parkinson's and type 2 diabetes mellitus who presents with chronic ambulatory dysfunction over several months, with a sudden acute worsening in the last week. Butch reports that for the last week he is felt globally weak. He has had some intermittent numbness and tingling in his left arm. He denies chest pain, chest pressure, shortness of breath, difficulty breathing, new cough, lightheadedness, or dizziness, but endorses that he just feels globally weak. His family who is present at bedside report that they feel like he is a little cognitively slowed and more confused than normal. He has also had urinary incontinence last 3 to 4 days which is unusual for him. He has not noticed an increase in his parkinsonian tremor. Denies fever at home, but has felt warm. Denies chills, night sweats. Denies rash, joint swelling, arthralgia. His reports that he danielle deer heads and she recently pulled multiple embedded deer ticks off of him. He had Lyme testing at a ED visit yesterday for a fall, IgM/IgG were negative. His reports that he is only been about 30% compliant with his medications overall due to weakness and difficulty swallowing medications. He has chronic back pain controlled and had spinal fusion in October, reports that he is felt weak and has had difficulty ambulating since then. Has not been to rehab. He fell this afternoon, and was reportedly down for about 2 hours before his found him. A chair fell on top of him and hit his head. He did not lose consciousness. Endorses allergies. Denies cold-like symptoms. Endorses chronic leg cough, unchanged from baseline. Denies sputum production. Denies sore throat. Denies sinus congestion. Denies shortness of breath, difficulty breathing, pain on inspiration. Denies chest pain, chest pressure, palpitations. Endorses a fall, but denies loss of consciousness. Denies flank pain. Denies nausea, vomiting, diarrhea, constipation, abdominal pain. Endorses midline umbilical hernia without tenderness. Denies numbness in distal extremities. Endorses intermittent left arm tingling and paresthesia in the last week. Denies focal neurologic deficit. Endorses parkinsonian tremor. His neurologist is Dr. Knox and Prudence PCP is Dr. Scott Gaitan Admission Exam Per Admitting Provider General: Oriented to name, year, and place. No acute distress. Cooperative. Speech slow, fluent. Skin: No rash, no erythema migrans appreciated. No petechiae/hematomas appreciated. HEENT: Atraumatic, normocephalic. No facial asymmetry. No nasolabial fold flattening or hypertonicity. Pupils equal and reactive to light and accommodation. No nystagmus. Facial sensation intact, facial strength intact without deficit. External ear anatomy normal. External nasal anatomy normal. Mucous membranes tacky, posterior pharynx without erythema/exudate. Uvula midline. Pulm: CTAB A&P. -wheezes, -rales, -rhonchi. Symmetrical chest rise. No increase work of breathing. No respiratory distress. Cardiac: RRR, -mrg. Intermittent PVC every 10-20 beats. Radial pulses intact and symmetrical. PT pulse intact and symmetrical. Abdominal: Nontender, nondistended, soft. Reducible umbilical hernia present. BS present. Extremities: Cogwheeling tremor appreciated in arms bilaterally, more exaggerated on the left compared to right. 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 Principal Diagnosis Anasplasmosis Ambulatory dysfunction and weakness Discharge Exam General: Well nourished, well hydrated, no acute distress Eyes: PERRL, conjunctivae normal, not pale, anicteric sclerae, EOM intact bilaterally ENMT: External ear and nose normal, oropharynx normal Neck: Normal visual inspection, no tracheal deviation, no swelling noted Respiratory: Normal respiratory effort, no respiratory distress, lungs clear to auscultation, no crackles and no wheezes Cardiovascular: Pulse is RRR. Heart Sounds: normal S1 and normal S2; no murmurs. Vessels: normal peripheral pulses Extremities: no pedal edema Gastrointestinal (Abdomen): Abdomen is not distended, soft, non-tender to palpation, no guarding, no palpable hepatosplenomegaly, normal bowel sounds Musculoskeletal: No cyanosis or clubbing Skin: No rash noted on gross inspection, No ulcers noted Neurologic: Alert and oriented x 3, No focal weakness, sensation grossly intact Discharge Data Allergies Allergy/AdvReac Type Severity Reaction Status Date / Time lisinopril Allergy Mild Cough Verified 04/14/19 21:16 [place]py-Kyt Reductase Allergy Mild MUSCLE Verified 04/14/19 21:16 Inhibitor CRAMPS Consultations 04/14/19 21:24 ED Decision to Admit Stat Ordered Studies 04/14/19 19:58 CT cervical spine wo con Stat CT head/brain wo con Stat Hospital Course (1) Recurrent falls: 63 y/o male with poorly controlled type 2 diabetes mellitus and Parkinson's disease who presented with ambulatory dysfunction, fall, and fever. 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 in the last 2 weeks Leukopenic w/ WBC 2.67, elevated AST to 45, febrile to 37.7 C on admission, pt then developed pancytopenia Pancytopenia now resolved Lyme Ab negative, Anaplasmosis smear - negative, Anaplasma PCR- positive Started treatment with doxycycline 100 mg IV twice daily started on admission (04/14/2019) Continue po doxycycline till 04/27/19 Was evaluated by PT and discharged to rehab (2) DM type 2 (diabetes mellitus, type 2): Poorly controlled HbA1c 13.3% (04/15/19) Per patient's family he rarely takes his medications due to his confusion in the last week, and overall difficulty managing medications Oral antidiabetics were held while inpatient. Continue on discharge Pharmacy consulted for glycemic management while inpatient. Discharged on Insulin recommendations as follows Lantus 32 units SQ BID and Novolog TID with meals (20 units Breakfast/15 units lunch/10units dinner) Follow up with PCP for continued management Possible encephalopathy -Per family patient more confused in the past week (prior to admission) -Possibly secondary to underlying etiology (anaplasma/ tick-borne inf.), in the setting of Parkinson's -Today patient was alert and oriented. (3) Parkinson disease: Patient has a deep brain stimulator which is effective in helping control his tremors Continue home med Sinemet 2 tabs p.o. 4 times daily Continue home med Azilect 1 mg p.o. every morning (4) Pancytopenia: Leukopenia and thrombocytopenia resolved Hb 13.8 Likely all related to anaplasmosis (5) Hypertension: Controlled Continue home irbesartan Total Time Total Time Spent Total Time Spent (In Minutes): 25 Total Time Includes: Examination of the Patient, Discharge Planning and Medicat ion Reconciliation Discharge Plan Discharge Items Patient Disposition: Transfer Group Home Fac Reason For Visit: WEAKNESS,FALL,LEUKOPENIA Discharge Diagnosis: Anasplasmosis Condition on Discharge: Fair Activity: Resume your previous activity Activity Comment: Per Physical therapy instructions Non-emergency contact: Primary Care Provider Call non-emergency contact if: you have any medication questions and your symptoms worsen Follow-up/Referrals: Cedrick Marquez MD [Primary Care Provider] - Diet: Carb Consistent or DM2 and Heart Healthy Addtl Attending Provider Instructions: Mr Pina. You came to the hospital with weakness and recurrent falls. Evaluation showed you have an infection called anaplasmosis. You were treated with antibiotics. You will need to continue this antibiotic till 04/27/2019. Your diabetes was also found to be poorly controlled. With aid of the pharmacist, certain adjustments were made to your insulin regimen. Please take Lantus 32Unit twice a day. Take Novolog as instructed with meals (20 units Breakfast/15 units lunch/10units dinner) until further evaluation and adjustment per your Primary Doctor. Due to your weakness, you were evaluated by Physical therapy and rehab was recommended. Please ensure you take your medications as prescribed and follow up with your Primary Doctor. It was a pleasure taking care of you. Pending Studies at Discharge: No Stand-Alone Forms: My [facility] Skilled Items Patient informed of condition?: Yes DNR: No Discharge Level of Care: Skilled Communicable Disease: No Discharge Prognosis: Stable Lines: None Urinary Catheter: No Medications and DC Order Prescriptions: New doxycycline hyclate 100 mg Capsule 100 mg PO BID 7 Days Qty: 14 RF: 0 acetaminophen [Mapap (acetaminophen)] 325 mg Tablet 650 mg PO Q4H PRN (Reason: pain) Qty: 10 RF: 0 oxycodone 5 mg tablet 5 mg PO Q4H PRN (Reason: Pain) 5 Days Qty: 10 RF: 0 Continued carbidopa-levodopa 25-100 mg tablet 2 tab PO QID RF: 0 metformin 500 mg tablet extended release 24 hr 1,000 mg PO DIRECTED RF: 0 finasteride 5 mg tablet 5 mg PO HS RF: 0 loratadine 10 mg tablet 10 mg PO HS RF: 0 Farxiga 10 mg tablet 10 mg PO QAM RF: 0 Repatha SureClick 140 mg/mL pen injector 140 mg SUBCUT Q14D RF: 0 cyanocobalamin (vitamin B-12) [Vitamin B-12] 100 mcg Tablet 100 mcg PO QAM RF: 0 meloxicam 15 mg Tablet 15 mg PO DAILY PRN (Reason: Headache) RF: 0 aspirin 81 mg Tablet,Chewable 81 mg PO HS RF: 0 fluticasone propionate [Flonase Allergy Relief] 50 mcg/actuation [place],Suspension 2 spray INTRANASAL DAILY PRN (Reason: Allergy Symptoms) RF: 0 irbesartan 300 mg Tablet 300 mg PO HS RF: 0 rasagiline [Azilect] 1 mg Tablet 1 mg PO QAM RF: 0 cholecalciferol (vitamin D3) [Vitamin D3] 400 unit Tablet,Chewable 400 unit PO QAM RF: 0 lutein 10 mg Tablet 10 mg PO HS RF: 0 Changed Novolog Flexpen U-100 Insulin 100 unit/mL (3 mL) insulin pen See Rx Instructions .ROUTE .COMPLEX Qty: 15 RF: 0 Lantus Solostar U-100 Insulin 100 unit/mL (3 mL) insulin pen 32 unit SUBCUT BID Qty: 15 RF: 0 Discharge Orders: Discharge Order (Routine); Ordered 04/21/19 Ordered By: Sonia Mayfield/Other Patient Handouts: Diabetes Usp Complications, Diabetes Resources, Diabetes Healthy Meals, Diabetes Carbs, Diabetes Exercise Benefits, Diabetes Exercise Get Started, Diabetes Activity Tips, Diabetes Living Life, A1C Admission Data Admit Date/Time: 04/14/19 22:49 Attending Provider: Sonia Anaya I. Admit Provider: Gaurav Phelps Primary Care Provider: Cedrick Marquez Other Providers: Nathalia Brooks ; [facility], ; [facility] Other Interventions: Discharge Summary Assessment (RN) Last Done: 04/21/19 13:33 DC Date/Time DO NOT enter until pt leaves facility: 04/21/19 15:45
== END 2019-04-21 15:45 | DRG 868 ==
LOC: ED 19:33 → 4W 22:49 → SUATTDRO 22:49 → 4W 22:55